=== PATIENT | female | born 1985 | race African-American/Black ===

== ENCOUNTER 2017-03-02 12:32 | Emergency (ER) | payer MEDICAID ==
[~2017-03-02] VITALS: Ht 175.3 cm; Wt 85.0 kg
[~2017-03-02 12:32] MED LIST: AUGM875T PO; EFFE75CA PO; HYDR10TA23 PO; SKIN CREAM
[2017-03-02 13:50] VITALS: BP 131/83; PULSE 67; RESP 19; TEMP 98.2; O2SAT 98
[2017-03-02] MEDS ORDERED: HYDR-755 PO (14:00)
--- NOTE | 2017-03-02 14:02 | PD ---
HPI Chief Complaint: Anxiety Time Seen by Provider: 14:00 Travel History International Travel<30 days: No Contact w/Intl Traveler<30days: No Traveled to known affect area: No History of Present Illness HPI Patient comes in complaining of chest pain that began while having an anxiety attack after [place] that began approximately 2 hours ago while she was on the phone with her sister. Patient states chest pain felt similar to previous panic attacks however was concerned when she was having difficulty getting her breathing under control patient reports associated headache and tingling in left arm. Patient reports her mother had a stent placed prior to the age of 40. Patient states chest pain has since resolved but still feels that she has a "bubble" in her back is worse with deep inspiration. PFSH Past Medical History Anxiety: Yes (PANIC ATTACKS) Diminished Hearing: No Gestational Age in Weeks: 16 Hypertension: Yes Integumentary: Yes (PSORIASIS) Immunizations Current: Yes Tetanus Vaccination: > 5 Years ?: Unknown LMP: 01/24/17 : 3 Para: 3 Miscarriage: 0 : 0 Past Surgical History Gynecologic Surgery: Yes (CYST) Social History Alcohol Use: Yes (OCC) Tobacco Use: Yes (1 ppd) Substance Use: Yes (MARIJUANA OCC) Allergies-Medications (Allergen,Severity, Reaction): Coded Allergies: Aspirin (Verified Allergy, Severe, DIZZY/VOMITING/STOMACH PAIN, 03/02/17) Ibuprofen (Verified Adverse Reaction, Intermediate, Rash, 03/02/17) PT HAS PSORIASIS AND GETS FLARE UPS WHEN SHE TAKE IBUPROFEN Reported Meds & Prescriptions Reported Meds & Active Scripts Active Reported Hydroxyzine HCl 10 Mg Tab 10 Mg PO TID Review of Systems Except as stated in HPI: all other systems reviewed are Neg Physical Exam Narrative GENERAL: Well-developed, overly nourished, in no acute distress, and non-ill appearing. SKIN: Focused skin assessment warm and dry. HEAD: Atraumatic. Normocephalic. EYES: Pupils equal and round. EOMI. No scleral icterus. No injection or drainage. ENT: No nasal bleeding or discharge. Mucous membranes pink and moist. NECK: Trachea midline. No JVD. Supple. No nuclear rigidity. CARDIOVASCULAR: Regular rate and rhythm. No murmur appreciated. RESPIRATORY: No accessory muscle use. No respiratory distress. Clear to auscultation. Breath sounds equal bilaterally. MUSCULOSKELETAL: No obvious deformities. No clubbing. No cyanosis. No edema. Full range of motion. NEUROLOGICAL: Awake and alert. No obvious cranial nerve deficits. Motor grossly within normal limits. Normal speech. PSYCHIATRIC: Appropriate mood and affect; insight and judgment normal. Data Data Last Documented VS Vital Signs Date Time Temp Pulse Resp B/P Pulse Ox O2 Delivery O2 Flow Rate FiO2 03/02/17 14:12 99 Room Air 03/02/17 13:50 98.2 67 19 131/83 Orders Electrocardiogram (03/02/17 14:02) Basic Metabolic Panel (Bmp) (03/02/17 14:02) Ckmb (Isoenzyme) Profile (03/02/17 14:02) Complete Blood Count With Diff (03/02/17 14:02) Magnesium (Mg) (03/02/17 14:02) Prothrombin Time / Inr (Pt) (03/02/17 14:02) Act Partial Throm Time (Ptt) (03/02/17 14:02) Troponin I (03/02/17 14:02) Chest, Single Ap (03/02/17 14:02) Ecg Monitoring (03/02/17 14:02) Bilateral Bp Monitoring (03/02/17 14:02) Iv Access Insert/Monitor (03/02/17 14:02) Oximetry (03/02/17 14:02) Oxygen Administration (03/02/17 14:02) Sodium Chloride 0.9% Flush (Ns Flush) (03/02/17 14:15) Labs Laboratory Tests Test 03/02/17 14:16 White Blood Count 6.0 TH/MM3 Red Blood Count 4.01 MIL/MM3 Hemoglobin 12.5 GM/DL Hematocrit 36.6 % Mean Corpuscular Volume 91.3 FL Mean Corpuscular Hemoglobin 31.2 PG Mean Corpuscular Hemoglobin 34.2 % Concent Red Cell Distribution Width 13.4 % Platelet Count 231 TH/MM3 Mean Platelet Volume 7.2 FL Neutrophils (%) (Auto) 45.6 % Lymphocytes (%) (Auto) 48.3 % Monocytes (%) (Auto) 4.0 % Eosinophils (%) (Auto) 0.9 % Basophils (%) (Auto) 1.2 % Neutrophils # (Auto) 2.7 TH/MM3 Lymphocytes # (Auto) 2.9 TH/MM3 Monocytes # (Auto) 0.2 TH/MM3 Eosinophils # (Auto) 0.1 TH/MM3 Basophils # (Auto) 0.1 TH/MM3 CBC Comment DIFF FINAL Differential Comment Prothrombin Time 11.4 SEC Prothromb Time International 1.0 RATIO Ratio Activated Partial 30.3 SEC Thromboplast Time Sodium Level 143 MEQ/L Potassium Level 3.3 MEQ/L Chloride Level 107 MEQ/L Carbon Dioxide Level 27.9 MEQ/L Anion Gap 8 MEQ/L Blood Urea Nitrogen 3 MG/DL Creatinine 1.51 MG/DL Estimat Glomerular Filtration 49 ML/MIN Rate Random Glucose 82 MG/DL Calcium Level 8.9 MG/DL Magnesium Level 1.9 MG/DL MDM Medical Decision Making Medical Screen Exam Complete: Yes Emergency Medical Condition: Yes Interpretation(s) EKG reviewed by Dr. [place] shows ventricular rate 60. No STEMI and no acute changes. Differential Diagnosis Atypical chest pain, panic attack, acute coronary syndrome, other Narrative Course AMA: The risks of leaving against medical advice without further evaluation treatment were discussed with the patient. These risks include cardiac dysfunction, cardiac dysrhythmia, possible heart attack, possible stroke or . The patient indicated understanding of these risks and appeared to have the capacity to make this decision. Pt ambulated without difficulty out of ED AMA. Diagnosis Primary Impression: Left against medical advice Disposition: 07 AGAINST MEDICAL ADVICE Condition: Stable Lee Glaser Mar 02, 2017 14:02
[2017-03-02 14:12] VITALS: O2SAT 99
[2017-03-02] MEDS ORDERED: SODIUM CHLORIDE 0.9% FLUSH 10 ML FLUSH IVF PRN (14:15)
[2017-03-02 14:32] LABS: AUTOMATED NEUTROPHIL # 2.7 TH/MM3 (1.8-7.7); BASOPHIL # 0.1 TH/MM3 (0-0.2); BASOPHIL % 1.2 % (0.0-2.0); EOSINOPHIL # 0.1 TH/MM3 (0-0.4); EOSINOPHIL % 0.9 % (0.0-4.0); HEMATOCRIT 36.6 % (35.0-46.0); HEMO FLAGS DIFF FINAL; LYMPH % 48.3 % (9.0-44.0); LYMPHOCYTE # 2.9 TH/MM3 (1.0-4.8); MEAN CELL VOLUME 91.3 FL (80.0-100.0); MEAN CORPUSCULAR HEMOGLOBIN 31.2 PG (27.0-34.0); MEAN CORPUSCULAR HGB CONC 34.2 % (32.0-36.0); NEUT % 45.6 % (16.0-70.0); PLATELET COUNT 231 TH/MM3 (150-450); RED BLOOD COUNT 4.01 MIL/MM3 (4.00-5.30); RED CELL DISTRIBUTION WIDTH 13.4 % (11.6-17.2)
[2017-03-02 14:44] LABS: APTT (PATIENT) 30.3 SEC (24.3-30.1); PROTHROMBIN TIME - PATIENT 11.4 SEC (9.8-11.6)
--- NOTE | 2017-03-02 14:45 | RADRPT ---
EXAM DATE/TIME: 03/02/2017 14:11 [facility] COMPARISON: CT ABDOMEN & PELVIS W/O CONTRAST, March 24, 2016, 11:24. CHEST SINGLE AP, October 17, 2014, 18:05. INDICATIONS : Patient states shortness of breath. MEDICAL HISTORY : Hypertension. SURGICAL HISTORY : None. ENCOUNTER: Initial ACUITY: 1 day PAIN SCORE: 4/10 LOCATION: Bilateral chest FINDINGS: The heart is normal in size. It does appear stable in size compared to previous date 10/17/14. The caron ngs are clear. The bony structures are intact. CONCLUSION: 1. Stable compared to previous exam. 2. The lungs are clear. Jim Kelley MD on March 02, 2017 at 14:42 Board Certified Radiologist. This report was verified electronically.
[2017-03-02 14:48] LABS: ANION GAP 8 MEQ/L (5-15); BICARBONATE 27.9 MEQ/L (21.0-32.0); BLOOD UREA NITROGEN 3 MG/DL (7-18); CHLORIDE 107 MEQ/L (98-107); GLOMERULAR FILTRATION RATE 49 ML/MIN (>89); MAGNESIUM 1.9 MG/DL (1.5-2.5); POTASSIUM 3.3 MEQ/L (3.5-5.1); SODIUM (NA) 143 MEQ/L (136-145)
[2017-03-02 14:51] LABS: CREATINE KINASE 254 U/L (26-192)
[2017-03-02 15:03] LABS: CKMB 0.9 NG/ML (0.5-3.6)
--- NOTE | 2017-03-03 10:47 | EKG ---
Date Performed: 03/02/2017 Time Performed: 14:03:32 PTAGE: 31 years EKG: Sinus rhythm NORMAL ECG Compared to prior tracing no significant change PREVIOUS TRACING : 12/25/2015 20.39 DOCTOR: Melody Valera Interpretating Date/Time 03/03/2017 10:40:42
== END 2017-03-02 15:26 | disposition left against medical advice (07) ==
LOC: NEPE 12:32
DX: Z53.21 Procedure and treatment not carried out due to patient leaving prior to being seen by health care provider (principal); F17.210 Nicotine dependence, cigarettes, uncomplicated; I10 Essential (primary) hypertension
CPT/HCPCS: 71010; 80048; 82550; 82552; 83735; 84484; 85025; 85610; 85730; 93005

== ENCOUNTER 2017-03-16 16:49 | Emergency (ER) | payer MEDICAID ==
[~2017-03-16] VITALS: Ht 170.2 cm; Wt 93.0 kg
[~2017-03-16 16:49] MED LIST changes: -AUGM875T PO; -EFFE75CA PO; +HYDR-755 PO; -HYDR10TA23 PO; -SKIN CREAM
[2017-03-16 16:51] VITALS: BP 165/83; PULSE 65; RESP 16; TEMP 97.7; O2SAT 100
--- NOTE | 2017-03-16 17:20 | PD ---
Physical Exam Time Seen by Provider: 17:18 Narrative Pt presents to ED for evaluation of L foot pain after kicking a fan yesterday at [employer]. Pain is 6/10; exacerbated by walking. Has been taking tylenol. Pt is concerned because it is swollen and is having sharp stinging pains. Pt has medical history of psoriasis. Data Data Last Documented VS Vital Signs Date Time Temp Pulse Resp B/P Pulse Ox O2 Delivery O2 Flow Rate FiO2 03/16/17 16:51 97.7 65 16 165/83 100 Room Air [facility] Medical Record Reviewed: Yes Supervised Visit with [facility]: No Narrative Course Pt presents to ED for evaluation of L foot pain. Appears well. VSS. Xray ordered. Condition: Stable Sari Zamorano Mar 16, 2017 17:20
--- NOTE | 2017-03-16 17:58 | RADRPT ---
EXAM DATE/TIME: 03/16/2017 17:44 [facility] COMPARISON: No previous studies available for comparison. INDICATIONS : Left foot pain after hitting AC fan. MEDICAL HISTORY : None. SURGICAL HISTORY : None. ENCOUNTER: Initial ACUITY: 1 day PAIN SCORE: 6/10 LOCATION: Left lateral foot. FINDINGS: There is a nondisplaced fracture of the fifth middle phalanx there. IMPRESSION: Fifth middle phalangeal fracture.. Krishna Edward MD on March 16, 2017 at 17:55 Board Certified Radiologist. This report was verified electronically.
[2017-03-16] MEDS ORDERED: ACET500T3 PO (18:10)
--- NOTE | 2017-03-16 18:11 | PD ---
HPI Chief Complaint: Injury Time Seen by Provider: 18:08 Travel History International Travel<30 days: No Contact w/Intl Traveler<30days: No Traveled to known affect area: No History of Present Illness HPI 31-year-old male presents emergency Department with complaint of left fifth toe pain since Thursday after kicking a fan while at [employer]. Denies paresthesias, loss of sensation to the affected toe. Denies fever, chills, nausea, vomiting. Has taken Tylenol with little relief of pain. Allergies to aspirin and ibuprofen. Pain is aggravated with palpation, walking. No other modifying factors or associated signs and symptoms. PFSH Past Medical History Anxiety: Yes (PANIC ATTACKS) Diminished Hearing: No Gestational Age in Weeks: 16 Hypertension: Yes Integumentary: Yes (PSORIASIS) Immunizations Current: Yes : 3 Para: 3 Miscarriage: 0 : 0 Past Surgical History Gynecologic Surgery: Yes (CYST) Social History Alcohol Use: Yes (OCC) Tobacco Use: Yes (1 ppd) Substance Use: Yes (MARIJUANA OCC) Allergies-Medications (Allergen,Severity, Reaction): Coded Allergies: Aspirin (Verified Allergy, Severe, DIZZY/VOMITING/STOMACH PAIN, 03/16/17) Ibuprofen (Verified Adverse Reaction, Intermediate, Rash, 03/16/17) PT HAS PSORIASIS AND GETS FLARE UPS WHEN SHE TAKE IBUPROFEN Reported Meds & Prescriptions Reported Meds & Active Scripts Active Acetaminophen 500 Mg Tab 500 Mg PO Q6H PRN Reported Hydroxyzine HCl 10 Mg Tab 10 Mg PO TID Review of Systems Except as stated in HPI: all other systems reviewed are Neg Physical Exam Narrative GENERAL: Well-nourished, well-developed -Malaysian female patient, in no acute distress SKIN: Warm and dry. HEAD: Atraumatic. Normocephalic. EYES: Pupils equal and round. No scleral icterus. No injection or drainage. ENT: Mucosa pink and moist. Airway patent. NECK: Trachea midline. CARDIOVASCULAR: Regular rate. 3+ radial pulses. RESPIRATORY: No accessory muscle use. GASTROINTESTINAL: Rounded. MUSCULOSKELETAL: Left fifth toe is mildly edematous without erythema or ecchymosis; no obvious deformity; sensory intact. Left lower x-ray supplemented with 2+ pedal pulses and sensory intact without erythema or edema. No obvious deformities. No clubbing. No cyanosis. No edema. NEUROLOGICAL: Awake and alert. Oriented 3. No obvious cranial nerve deficits. Motor grossly within normal limits. Normal speech. PSYCHIATRIC: Appropriate mood and affect; insight and judgment normal. Data Data Last Documented VS Vital Signs Date Time Temp Pulse Resp B/P Pulse Ox O2 Delivery O2 Flow Rate FiO2 03/16/17 16:51 97.7 65 16 165/83 100 Room Air Orders Foot, Complete ([id number]) (03/16/17 ) Splint Or Brace Apply/Monitor (03/16/17 18:11) Crutches (03/16/17 18:11) MDM Medical Decision Making Medical Screen Exam Complete: Yes Emergency Medical Condition: Yes Medical Record Reviewed: Yes Differential Diagnosis Toe fracture, toe dislocation, toe contusion Narrative Course 31-year-old female with left fifth toe injury. Left fifth toe x-ray ordered. 1808: Left fifth toe x-ray concludes a nondisplaced fracture of the fifth middle phalanx. Postop shoe and crutches provided for support. Acetaminophen prescribed for home. Patient verbalizes understanding and agreement with treatment plan. Patient is medically cleared and stable for discharge. Discussed reasons to return to the emergency department. Instructed patient to follow up with primary care provider. Patient agrees with treatment plan. The patients vital signs are stable and the patient is stable for outpatient follow- up and treatment. Patient discharged home, stable and in no acute distress. Diagnosis Primary Impression: Toe fracture, left Qualified Code: S92.525A - Closed nondisplaced fracture of middle phalanx of lesser toe of left foot, initial encounter Referrals: Primary Care Physician Patient Instructions: Crutch Instructions (ED), General Instructions, Toe Fracture (ED) Departure Forms: Tests/Procedures, Work Release Enter return to work date: Mar 20, 2017 Additional Instructions: Tylenol as directed and as needed for pain and inflammation Rest, ice, compress, and elevate extremity to decrease pain and inflammation Shoe for support Avoid aggravating activity; increase activity as tolerated Follow-up with primary care provider Return to the emergency department immediately with worsening symptoms Med/Other Pt SpecificInfo: Prescription(s) given Scripts Acetaminophen 500 Mg [id number] Mg PO Q6H PRN (PAIN SCALE 1 TO 10) #30 TAB Ref 0 Prov:Abril Alfred 03/16/17 Disposition: 01 DISCHARGE HOME Condition: Stable Abril Alfred Mar 16, 2017 18:11
== END 2017-03-16 18:30 | disposition home or self-care (01) ==
LOC: NEPK 16:49
DX: S92.912A Unspecified fracture of left toe(s), initial encounter for closed fracture (principal); I10 Essential (primary) hypertension; F12.90 Cannabis use, unspecified, uncomplicated; W22.09XA Striking against other stationary object, initial encounter; Y92.22 Religious institution as the place of occurrence of the external cause; Z72.0 Tobacco use
CPT/HCPCS: 73630; 99283; E0113; L3260

== ENCOUNTER 2017-05-18 16:42 | Emergency (ER) | payer MEDICAID ==
[~2017-05-18] VITALS: Ht 170.2 cm; Wt 92.0 kg
[~2017-05-18 16:42] MED LIST changes: +ACET500T3 PO
[2017-05-18 16:46] VITALS: BP 120/61; PULSE 76; RESP 22; TEMP 98.3; O2SAT 99
--- NOTE | 2017-05-18 17:53 | PD ---
HPI Chief Complaint: Abdominal Pain Time Seen by Provider: 17:53 Travel History International Travel<30 days: No Contact w/Intl Traveler<30days: No Traveled to known affect area: No History of Present Illness HPI 31 YO F presents to the ED for evaluation of 1 hour history of sudden onset cramping LLQ abdominal pain. Radiates to the pelvis and back. Patient denies known trauma, F/C, N/V, dysuria, vaginal discharge. States LMP was "earlier this month." PFSH Past Medical History Anxiety: Yes (PANIC ATTACKS) Diminished Hearing: No Gestational Age in Weeks: 16 Hypertension: Yes Integumentary: Yes (PSORIASIS) Immunizations Current: Yes ?: Unknown : 3 Para: 3 Miscarriage: 0 : 0 Past Surgical History Gynecologic Surgery: Yes (CYST) Social History Alcohol Use: Yes (OCC) Tobacco Use: Yes (1 ppd) Substance Use: Yes (MARIJUANA OCC) Allergies-Medications (Allergen,Severity, Reaction): Coded Allergies: Aspirin (Verified Allergy, Severe, DIZZY/VOMITING/STOMACH PAIN, 05/18/17) Ibuprofen (Verified Adverse Reaction, Intermediate, Rash, 05/18/17) PT HAS PSORIASIS AND GETS FLARE UPS WHEN SHE TAKE IBUPROFEN Reported Meds & Prescriptions Reported Meds & Active Scripts Active Reported Effexor (Venlafaxine HCl) 50 Mg Tab 50 Mg PO Q8H PRN Effexor (Venlafaxine HCl) 50 Mg Tab 50 Mg PO Q8H Hydroxyzine HCl 10 Mg Tab 25 Mg PO TID Review of Systems Except as stated in HPI: all other systems reviewed are Neg Physical Exam Narrative GENERAL: Well-nourished, well-developed obese black female lying on her side on the stretcher in [facility]. SKIN: Focused skin assessment warm/dry. Multiple tattoos noted HEAD: Normocephalic. EYES: No scleral icterus. No injection or drainage. NECK: Supple, trachea midline. No JVD or lymphadenopathy. CARDIOVASCULAR: Regular rate and rhythm without murmurs, gallops, or rubs. RESPIRATORY: Breath sounds equal bilaterally. No accessory muscle use. GASTROINTESTINAL: Abdomen soft, nondistended. Mildly tender to palpation in the left lower quadrant. No flank tenderness. No suprapubic tenderness. No palpable masses. MUSCULOSKELETAL: No cyanosis, or edema. BACK: Nontender without obvious deformity. No CVA tenderness. Data Data Last Documented VS Vital Signs Date Time Temp Pulse Resp B/P Pulse Ox O2 Delivery O2 Flow Rate FiO2 05/18/17 17:56 62 16 159/77 100 Room Air 05/18/17 16:46 98.3 Orders Complete Blood Count With Diff (05/18/17 17:57) Comprehensive Metabolic Panel (05/18/17 17:57) Lipase (05/18/17 17:57) Lactic Acid (05/18/17 17:57) Urinalysis - C+S If Indicated (05/18/17 17:57) Iv Access Insert/Monitor (05/18/17 17:57) Ecg Monitoring (05/18/17 17:57) Oximetry (05/18/17 17:57) NPO (05/18/17 17:57) Ondansetron Inj (Zofran Inj) (05/18/17 18:00) Sodium Chlor 0.9% 1000 Ml Inj (Ns 1000 M (05/18/17 17:57) Sodium Chloride 0.9% Flush (Ns Flush) (05/18/17 18:00) Ed Urine Pregnancytest Poc (05/18/17 17:57) Morphine Inj (Morphine Inj) (05/18/17 18:00) Ct Abd/Pel W Iv Contrast(Rout) (05/18/17 18:01) Iohexol 350 Inj (Omnipaque 350 Inj) (05/18/17 19:38) Labs Laboratory Tests Test 05/18/17 05/18/17 05/18/17 18:07 18:35 20:12 Lactic Acid Level 1.6 mmol/L White Blood Count 6.5 TH/MM3 Red Blood Count 4.32 MIL/MM3 Hemoglobin 13.4 GM/DL Hematocrit 40.2 % Mean Corpuscular Volume 93.0 FL Mean Corpuscular Hemoglobin 31.1 PG Mean Corpuscular Hemoglobin 33.4 % Concent Red Cell Distribution Width 12.9 % Platelet Count 235 TH/MM3 Mean Platelet Volume 7.4 FL Neutrophils (%) (Auto) 55.6 % Lymphocytes (%) (Auto) 36.5 % Monocytes (%) (Auto) 4.5 % Eosinophils (%) (Auto) 2.0 % Basophils (%) (Auto) 1.4 % Neutrophils # (Auto) 3.6 TH/MM3 Lymphocytes # (Auto) 2.4 TH/MM3 Monocytes # (Auto) 0.3 TH/MM3 Eosinophils # (Auto) 0.1 TH/MM3 Basophils # (Auto) 0.1 TH/MM3 CBC Comment DIFF FINAL Differential Comment Sodium Level 139 MEQ/L Potassium Level 3.5 MEQ/L Chloride Level 108 MEQ/L Carbon Dioxide Level 20.3 MEQ/L Anion Gap 11 MEQ/L Blood Urea Nitrogen 6 MG/DL Creatinine 0.82 MG/DL Estimat Glomerular Filtration 98 ML/MIN Rate Random Glucose 81 MG/DL Calcium Level 8.7 MG/DL Total Bilirubin 0.6 MG/DL Aspartate Amino Transf 11 U/L (AST/SGOT) Alanine Aminotransferase 14 U/L (ALT/SGPT) Alkaline Phosphatase 45 U/L Total Protein 7.1 GM/DL Albumin 3.5 GM/DL Lipase 105 U/L Urine Color YELLOW Urine Turbidity CLEAR Urine pH 8.0 Urine Specific [place] 1.046 Urine Protein TRACE mg/dL Urine Glucose (UA) NEG mg/dL Urine Ketones 10 mg/dL Urine Occult Blood TRACE Urine Nitrite NEG Urine Bilirubin NEG Urine Urobilinogen LESS THAN 2.0 MG/DL Urine Leukocyte Esterase TRACE Urine RBC 8 /hpf Urine WBC 3 /hpf Urine Squamous Epithelial 5 /hpf Cells Urine Mucus FEW /lpf Microscopic Urinalysis Comment CULT NOT INDICATED MDM Medical Decision Making Medical Screen Exam Complete: Yes Emergency Medical Condition: Yes Differential Diagnosis nephroureterolithiasis versus ovarian torsion versus ovarian cyst versus diverticulitis versus other Narrative Course 31 YO F presents to the ED for evaluation of 1 hour history of sudden onset cramping LLQ abdominal pain. Radiates to the pelvis and back. Patient denies known trauma, F/C, N/V, dysuria, vaginal discharge. States LMP was "earlier this month." Vitals reviewed. Physical exam reveals mild tenderness to palpation of the left lower quadrant. No suprapubic tenderness. No flank tenderness. No CVA tenderness. IV was established. Patient was administered 4 mg morphine and 4 mg Zofran IV. CBC, CMP, lipase, lactate all unremarkable. Urine test negative. CT of the abdomen reveals no acute pathology in the left lower quadrant to explain this patient's pain. Review of the patient' s record reveals that she had a visit in March 2016 with a very similar presentation and complaint, diagnosed with UTI at that time. During the course of evaluation the patient became very agitated, demanding additional pain medications. I entered the room to discuss the findings and the patient was removing her IV. I informed her of the findings and the pending UA. The patient opted to leave AGAINST MEDICAL ADVICE. Subsequent UA results negative for culture. Diagnosis Primary Impression: Left lower quadrant abdominal pain of unknown etiology Referrals: Residential Treatment Counselor Primary Care Physician Patient Instructions: Abdominal Pain (ED), General Instructions Additional Instructions: Rest, hydrate. Follow-up with the primary care provider or food counselor for further evaluation of your intermittent abdominal pain. Return to the ED for any urgent or emergent medical condition. Disposition: 07 AGAINST MEDICAL ADVICE Condition: Stable Anneliese España May 18, 2017 17:53
[2017-05-18 17:56] VITALS: BP 159/77; PULSE 62; RESP 16; O2SAT 100
[2017-05-18] MEDS ORDERED: SODIUM CHLOR 0.9% 1000 ML INJ 1,000 ML IV SCH (17:57)
[2017-05-18] MEDS ORDERED: ONDANSETRON HCL 4 MG/2 ML VIAL IVP ONE (18:00)
[2017-05-18] MEDS ORDERED: SODIUM CHLORIDE 0.9% FLUSH 10 ML FLUSH IV FLUSH PRN (18:00)
[2017-05-18] MEDS ORDERED: MORPHINE SULFATE 4 MG/ML INJ IV PUSH ONE (18:00)
[2017-05-18] MEDS ORDERED: VENL50TA PO (18:02)
[2017-05-18 19:03] LABS: AUTOMATED NEUTROPHIL # 3.6 TH/MM3 (1.8-7.7); BASOPHIL # 0.1 TH/MM3 (0-0.2); BASOPHIL % 1.4 % (0.0-2.0); EOSINOPHIL # 0.1 TH/MM3 (0-0.4); HEMATOCRIT 40.2 % (35.0-46.0); HEMO FLAGS DIFF FINAL; LYMPH % 36.5 % (9.0-44.0); LYMPHOCYTE # 2.4 TH/MM3 (1.0-4.8); MEAN CORPUSCULAR HEMOGLOBIN 31.1 PG (27.0-34.0); MEAN CORPUSCULAR HGB CONC 33.4 % (32.0-36.0); MONO % 4.5 % (0.0-8.0); NEUT % 55.6 % (16.0-70.0); PLATELET COUNT 235 TH/MM3 (150-450); RED BLOOD COUNT 4.32 MIL/MM3 (4.00-5.30); RED CELL DISTRIBUTION WIDTH 12.9 % (11.6-17.2); WHITE BLOOD COUNT 6.5 TH/MM3 (4.0-11.0)
[2017-05-18 19:13] LABS: ALT (GPT) 14 U/L (10-53); ANION GAP 11 MEQ/L (5-15); AST (GOT) 11 U/L (15-37); BICARBONATE 20.3 MEQ/L (21.0-32.0); BLOOD UREA NITROGEN 6 MG/DL (7-18); CHLORIDE 108 MEQ/L (98-107); GLOMERULAR FILTRATION RATE 98 ML/MIN (>89); POTASSIUM 3.5 MEQ/L (3.5-5.1); SODIUM (NA) 139 MEQ/L (136-145)
[2017-05-18 19:15] LABS: ALKALINE PHOSPHATASE 45 U/L (45-117); TOTAL BILIRUBIN ADULT 0.6 MG/DL (0.2-1.0)
[2017-05-18] MEDS ORDERED: IOHEXOL 350 MG/ML 10 ML VIAL (for RAD DIAG) IV ONE (19:38)
--- NOTE | 2017-05-18 19:58 | RADRPT ---
EXAM DATE/TIME: 05/18/2017 19:32 [facility] COMPARISON: CT ABDOMEN & PELVIS W CONTRAST, May 03, 2007, 1:38. INDICATIONS : Left lower quadrant pain radiating. IV CONTRAST: 77 cc Omnipaque 350 (iohexol) IV ORAL CONTRAST: No oral contrast ingested. RADIATION DOSE: 10.09 CTDIvol (mGy) MEDICAL HISTORY : Hypertension. Psoriasis. SURGICAL HISTORY : None. ENCOUNTER: Initial ACUITY: 1 day PAIN SCALE: 8/10 LOCATION: Left lower quadrant TECHNIQUE: Volumetric scanning of the abdomen and pelvis was performed. Using automated exposure control and ad justment of the mA and/or kV according to patient size, radiation dose was kept as low as reasonably achievable to obtain optimal diagnostic quality images. FINDINGS: LOWER LUNGS: The visualized lower lungs are clear. LIVER: Homogeneous density without lesion. There is no dilation of the biliary tree. No calcified gallston es. SPLEEN: Normal size without lesion. PANCREAS: Within normal limits. KIDNEYS: Normal in size and shape. There is no mass, stone or hydronephrosis. ADRENAL GLANDS: Within normal limits. VASCULAR: There is no aortic aneurysm. BOWEL/MESENTERY: The stomach, small bowel, and colon demonstrate no acute abnormality. There is fluid throughout the colon and rectum. Appendix is not visualized. There is no free intraperitoneal air or fluid. ABDOMINAL WALL: Within normal limits. RETROPERITONEUM: There is no lymphadenopathy. BLADDER: No wall thickening or mass. REPRODUCTIVE: The uterus and left ovary have a normal appearance. There is a 2.8 cm cystic structure in the right a dnexa. It is not clear if this is associated with the right ovary or represents a segment of fluid-fi lled bowel. INGUINAL: There is no lymphadenopathy or hernia. MUSCULOSKELETAL: No acute finding. CONCLUSION: 1. No acute finding is identified the abdomen or pelvis to explain the clinical symptoms. 2. There is a right ovarian cystic lesion measuring 2.8 cm versus a segment of fluid-filled bowel. Ambrosio Zamora MD on May 18, 2017 at 19:53 Board Certified Radiologist. This report was verified electronically.
[2017-05-18 20:55] LABS: BLOOD, URINE TRACE (NEG); COMMENT (UR) CULT NOT INDICATED; CULTURE IF INDICATED CULT NOT INDICATED; GLUCOSE,URINE NEG (NEG); KETONE, URINE 10 mg/dL (NEG); MUCUS URINE FEW /lpf (OCC); NITRITE,URINE NEG (NEG); SQUAMOUS EPITHELIAL CELL URINE 5 /hpf (0-5); URINE COLOR YELLOW (YELLW/STRAW)
== END 2017-05-18 21:02 | disposition left against medical advice (07) ==
LOC: NEPD 16:42
DX: R10.32 Left lower quadrant pain (principal); I10 Essential (primary) hypertension; F17.210 Nicotine dependence, cigarettes, uncomplicated
CPT/HCPCS: 74177; 80053; 81001; 83605; 83690; 84703; 85025; 96361; 96374; 96375; 99285; J2270; J2405; J7030; Q9967

== ENCOUNTER 2018-03-05 19:13 | Emergency (ER) | payer MEDICAID ==
[~2018-03-05] VITALS: Ht 167.6 cm; Wt 98.0 kg
[~2018-03-05 19:13] MED LIST changes: -ACET500T3 PO; +VENL50TA PO
[2018-03-05 19:23] VITALS: BP 156/89; PULSE 87; RESP 16; TEMP 98.2; O2SAT 100
== END 2018-03-05 20:10 | disposition left against medical advice (07) ==
LOC: NED 19:13
DX: R10.9 Unspecified abdominal pain (principal); Z53.21 Procedure and treatment not carried out due to patient leaving prior to being seen by health care provider
CPT/HCPCS: 99281

== ENCOUNTER 2018-03-08 11:29 | Emergency (ER) | payer MEDICAID ==
[~2018-03-08] VITALS: Ht 167.6 cm; Wt 95.5 kg
[2018-03-08 12:14] VITALS: BP 164/89; PULSE 93; RESP 20; TEMP 102.9; O2SAT 99
[2018-03-08] MEDS ORDERED: ACETAMINOPHEN 325 MG TAB PO ONE (12:30)
[2018-03-08 14:10] VITALS: TEMP 100.5
--- NOTE | 2018-03-08 15:01 | PD ---
HPI Chief Complaint: Cold / Flu Symptoms Time Seen by Provider: 15:00 Travel History International Travel<30 days: No Contact w/Intl Traveler<30days: No Traveled to known affect area: No History of Present Illness HPI 32-year-old female came to the emergency room with history of fever, cough and sneezing along with body aches for past 2 days. Her son is sick and is being seen in the pediatric part of the emergency room. Vital signs shows a temperature 102.5 in triage. Patient was given Tylenol in the emergency room triage. Patient also says that she was tested positive for couple days ago. She has been nauseous but not vomiting. No diarrhea. She is otherwise a relatively healthy person. [facility] Past Medical History Narrative Medical List of her past medical, surgical, social and family history is reviewed from the nursing note. Anxiety: Yes (PANIC ATTACKS) Diminished Hearing: No Gestational Age in Weeks: 16 Hypertension: Yes Integumentary: Yes (PSORIASIS) Immunizations Current: Yes ?: : 3 Para: 3 Miscarriage: 0 : 0 Past Surgical History Gynecologic Surgery: Yes (CYST) Social History Alcohol Use: Yes (OCC) Tobacco Use: Yes (1 ppd) Substance Use: Yes (MARIJUANA OCC) Allergies-Medications (Allergen,Severity, Reaction): Coded Allergies: aspirin (Unverified Allergy, Severe, DIZZY/VOMITING/STOMACH PAIN, 03/11/18) ibuprofen (Unverified Adverse Reaction, Intermediate, Rash, 03/11/18) PT HAS PSORIASIS AND GETS FLARE UPS WHEN SHE TAKE IBUPROFEN Comments List of her allergies reviewed from the nursing note. Reported Meds & Prescriptions Reported Meds & Active Scripts Active Vitamins Tablet (Pnv No.95/Ferrous Fum/Folic AC) 28 Mg Iron-800 Mcg Tablet 1 Tab PO ONCE Tamiflu (Oseltamivir Phosphate) 75 Mg Cap 75 Mg PO BID 5 Days Narrative Medication List of her home medications reviewed from the nursing note. Review of Systems Except as stated in HPI: all other systems reviewed are Neg General / Constitutional: Positive: Fever Respiratory: Positive: Cough, Sneezing Musculoskeletal: Positive: Myalgias Physical Exam Narrative GENERAL: Awake, alert, moderate distress, obese SKIN: Focused skin assessment warm/dry. HEAD: Atraumatic. Normocephalic. EYES: Pupils equal and round. No scleral icterus. No injection or drainage. ENT: No nasal bleeding or discharge. Mucous membranes pink and moist. NECK: Trachea midline. No JVD. CARDIOVASCULAR: Regular rate and rhythm. No murmur appreciated. RESPIRATORY: No accessory muscle use. Clear to auscultation. Breath sounds equal bilaterally. GASTROINTESTINAL: Abdomen soft, non-tender, nondistended. Hepatic and splenic margins not palpable. MUSCULOSKELETAL: No obvious deformities. No clubbing. No cyanosis. No edema. NEUROLOGICAL: Awake and alert. No obvious cranial nerve deficits. Motor grossly within normal limits. Normal speech. PSYCHIATRIC: Appropriate mood and affect; insight and judgment normal. Data Data Last Documented VS Orders Orders Complete Blood Count With Diff (03/08/18 12:16) Comprehensive Metabolic Panel (03/08/18 12:16) Urinalysis - C+S If Indicated (03/08/18 12:16) Lipase (03/08/18 12:16) Ed Urine Pregnancytest Poc (03/08/18 12:16) Beta Hcg (Quant/Titer) (03/08/18 12:16) Influenzae A/B Antigen (03/08/18 12:16) Acetaminophen (Tylenol) (03/08/18 12:30) Blood Culture (03/08/18 15:01) Sodium Chlor 0.9% 1000 Ml Inj (Ns 1000 M (03/08/18 15:15) Oseltamivir (Tamiflu) (03/08/18 16:30) Ed Discharge Order (03/08/18 16:19) Labs Laboratory Tests Test 03/08/18 14:14 03/08/18 14:45 Urine Color YELLOW Urine Turbidity HAZY Urine pH 7.0 Urine Specific [place] 1.027 Urine Protein 30 mg/dL Urine Glucose (UA) NEG mg/dL Urine Ketones 10 mg/dL Urine Occult Blood SMALL Urine Nitrite NEG Urine Bilirubin NEG Urine Urobilinogen 4.0 MG/DL Urine Leukocyte Esterase NEG Urine RBC 23 /hpf Urine WBC 2 /hpf Urine Squamous Epithelial Cells 5 /hpf Urine Bacteria RARE /hpf Urine Mucus MOD /lpf Microscopic Urinalysis Comment CULT NOT INDICATED White Blood Count 4.5 TH/MM3 Red Blood Count 4.45 MIL/MM3 Hemoglobin 14.4 GM/DL Hematocrit 41.1 % Mean Corpuscular Volume 92.3 FL Mean Corpuscular Hemoglobin 32.3 PG Mean Corpuscular Hemoglobin Concent 35.0 % Red Cell Distribution Width 13.2 % Platelet Count 205 TH/MM3 Mean Platelet Volume 7.1 FL Neutrophils (%) (Auto) 71.8 % Lymphocytes (%) (Auto) 16.8 % Monocytes (%) (Auto) 10.4 % Eosinophils (%) (Auto) 0.1 % Basophils (%) (Auto) 0.9 % Neutrophils # (Auto) 3.2 TH/MM3 Lymphocytes # (Auto) 0.8 TH/MM3 Monocytes # (Auto) 0.5 TH/MM3 Eosinophils # (Auto) 0.0 TH/MM3 Basophils # (Auto) 0.0 TH/MM3 CBC Comment DIFF FINAL Differential Comment Blood Urea Nitrogen 5 MG/DL Creatinine 0.95 MG/DL Random Glucose 82 MG/DL Total Protein 8.0 GM/DL Albumin 3.8 GM/DL Calcium Level 8.5 MG/DL Alkaline Phosphatase 52 U/L Aspartate Amino Transf (AST/SGOT) 26 U/L Alanine Aminotransferase (ALT/SGPT) 24 U/L Total Bilirubin 0.3 MG/DL Sodium Level 136 MEQ/L Potassium Level 3.2 MEQ/L Chloride Level 101 MEQ/L Carbon Dioxide Level 24.7 MEQ/L Anion Gap 10 MEQ/L Estimat Glomerular Filtration Rate 82 ML/MIN Lipase 152 U/L Human Chorionic Gonadotropin, Quant 147 MIU/ML MDM Medical Decision Making Medical Screen Exam Complete: Yes Emergency Medical Condition: Yes Medical Record Reviewed: Yes Differential Diagnosis Influenza, viral illness, UTI, Narrative Course Urine is positive. Awaiting for the chemistry and influenza test. Patient is getting 1 L of IV fluid bolus. 4:20 PM influenza A is positive. Have ordered Tamiflu. Patient will be discharged home. Procedures EKG Prior to Arrival: No Diagnosis Primary Impression: Influenza A Additional Impression: Early stage of Additional Instructions: Return to the emergency room if the condition worsens or any other new concerns. Drink lots of fluid to stay hydrated. Take the medication as per the prescription direction. Try to find an OB for this . Med/Other Pt SpecificInfo: Prescription(s) given Scripts Pnv No.95/Ferrous Fum/Folic AC ( Vitamins Tablet) 28 Mg Iron-800 Mcg Tablet 1 TAB PO ONCE, #30 Prov: Leia Riojas MD 03/08/18 Oseltamivir (Tamiflu) 75 Mg Cap 75 MG PO BID for Mgmt Viral Infection for 5 Days, #10 CAP 0 Refills Prov: Leia Riojas MD 03/08/18 Disposition: 01 DISCHARGE HOME Condition: Stable Leia Riojas MD Mar 08, 2018 15:01
[2018-03-08] MEDS ORDERED: SODIUM CHLOR 0.9% 1000 ML INJ 1,000 ML IV ONE (15:15)
[2018-03-08 15:37] LABS: AUTOMATED NEUTROPHIL # 3.2 TH/MM3 (1.8-7.7); BASOPHIL % 0.9 % (0.0-2.0); EOSINOPHIL % 0.1 % (0.0-4.0); HEMATOCRIT 41.1 % (35.0-46.0); HEMOGLOBIN 14.4 GM/DL (11.6-15.3); LYMPH % 16.8 % (9.0-44.0); LYMPHOCYTE # 0.8 TH/MM3 (1.0-4.8); MEAN CELL VOLUME 92.3 FL (80.0-100.0); MEAN CORPUSCULAR HEMOGLOBIN 32.3 PG (27.0-34.0); MEAN PLATELET VOLUME 7.1 FL (7.0-11.0); MONO % 10.4 % (0.0-8.0); MONOCYTE # 0.5 TH/MM3 (0-0.9); NEUT % 71.8 % (16.0-70.0); PLATELET COUNT 205 TH/MM3 (150-450); RED BLOOD COUNT 4.45 MIL/MM3 (4.00-5.30); RED CELL DISTRIBUTION WIDTH 13.2 % (11.6-17.2); WHITE BLOOD COUNT 4.5 TH/MM3 (4.0-11.0)
[2018-03-08 15:43] LABS: BACTERIA, URINE RARE /hpf; BILIRUBIN, URINE NEG (NEG); BLOOD, URINE SMALL (NEG); GLUCOSE,URINE NEG (NEG); KETONE, URINE 10 mg/dL (NEG); MUCUS URINE MOD /lpf (OCC); NITRITE,URINE NEG (NEG); SQUAMOUS EPITHELIAL CELL URINE 5 /hpf (0-5); URINE COLOR YELLOW (YELLW/STRAW); URINE LEUKOCYTE ESTERASE NEG (NEG)
[2018-03-08 16:04] LABS: ALBUMIN 3.8 GM/DL (3.4-5.0); AST (GOT) 26 U/L (15-37); BICARBONATE 24.7 MEQ/L (21.0-32.0); BLOOD UREA NITROGEN 5 MG/DL (7-18); CALCIUM 8.5 MG/DL (8.5-10.1); CHLORIDE 101 MEQ/L (98-107); CREATININE 0.95 MG/DL (0.50-1.00); GLOMERULAR FILTRATION RATE 82 ML/MIN (>89); GLUCOSE,RANDOM 82 MG/DL (74-106); SODIUM (NA) 136 MEQ/L (136-145)
[2018-03-08 16:14] LABS: ALKALINE PHOSPHATASE 52 U/L (45-117); ALT (GPT) 24 U/L (10-53); TOTAL BILIRUBIN ADULT 0.3 MG/DL (0.2-1.0)
[2018-03-08] MEDS ORDERED: OSEL75 PO (16:22)
[2018-03-08] MEDS ORDERED: PRENTAB7 PO (16:22)
[2018-03-08] MEDS ORDERED: OSELTAMIVIR PHOSPHATE 75 MG CAP PO ONE (16:30)
[2018-03-08 16:56] VITALS: BP 146/83
== END 2018-03-08 16:59 | disposition home or self-care (01) ==
LOC: NEPD 11:29
DX: O99.512 Diseases of the respiratory system complicating pregnancy, second trimester (principal); J10.1 Influenza due to other identified influenza virus with other respiratory manifestations; O99.332 Smoking (tobacco) complicating pregnancy, second trimester; F17.200 Nicotine dependence, unspecified, uncomplicated; Z3A.16 16 weeks gestation of pregnancy
CPT/HCPCS: 80053; 81001; 83690; 84702; 84703; 85025; 87040; 87804; 96360; 99284; J7030

== ENCOUNTER 2018-03-11 02:18 | Emergency (ER) | payer MEDICAID ==
[~2018-03-11 02:18] MED LIST changes: -HYDR-755 PO; +OSEL75 PO; +PRENTAB7 PO; -VENL50TA PO
[2018-03-11 02:22] VITALS: BP 129/87; PULSE 100; RESP 16; TEMP 98.7; O2SAT 10; O2SAT 100
--- NOTE | 2018-03-11 02:38 | PD ---
HPI Chief Complaint: Related Problem Time Seen by Provider: 02:33 Travel History International Travel<30 days: No Contact w/Intl Traveler<30days: No Traveled to known affect area: No History of Present Illness HPI 32-year-old female G for P3, LMP in December of this year, seen in the emergency department 3 days ago with a beta-hCG of 147, diagnosed with influenza B at that time, discharged home with a prescription for Tamiflu, here for evaluation of lower abdominal pain/cramping and vaginal bleeding. Symptoms started this evening. She reports brown/bloody discharge. Lower abdominal cramping is constant, moderate, worse with movements. She denies history of abdominal surgeries. She is sexually active with one partner and believe she is in a monogamous relationship. PFSH Past Medical History Anxiety: Yes (PANIC ATTACKS) Diminished Hearing: No Gestational Age in Weeks: 16 Hypertension: Yes Integumentary: Yes (PSORIASIS) Immunizations Current: Yes ?: LMP: 01/24/2018 : 3 Para: 3 Miscarriage: 0 : 0 Past Surgical History Gynecologic Surgery: Yes (CYST) Social History Alcohol Use: Yes (OCC) Tobacco Use: No (QUIT 1 MONTH ) Substance Use: Yes (MARIJUANA OCC) Allergies-Medications (Allergen,Severity, Reaction): Coded Allergies: aspirin (Unverified Allergy, Severe, DIZZY/VOMITING/STOMACH PAIN, 03/11/18) ibuprofen (Unverified Adverse Reaction, Intermediate, Rash, 03/11/18) PT HAS PSORIASIS AND GETS FLARE UPS WHEN SHE TAKE IBUPROFEN Reported Meds & Prescriptions Reported Meds & Active Scripts Active Vitamins Tablet (Pnv No.95/Ferrous Fum/Folic AC) 28 Mg Iron-800 Mcg Tablet 1 Tab PO ONCE Tamiflu (Oseltamivir Phosphate) 75 Mg Cap 75 Mg PO BID 5 Days Review of Systems Except as stated in HPI: all other systems reviewed are Neg Physical Exam Narrative GENERAL: Well-developed, well-nourished, no apparent distress. SKIN: Focused skin assessment warm/dry. HEAD: Atraumatic. Normocephalic. EYES: Pupils equal and round. No scleral icterus. No injection or drainage. ENT: No nasal bleeding or discharge. Mucous membranes pink and moist. NECK: Trachea midline. No JVD. CARDIOVASCULAR: Regular rate and rhythm. No murmur appreciated. RESPIRATORY: No accessory muscle use. Clear to auscultation. Breath sounds equal bilaterally. GASTROINTESTINAL: Abdomen soft, nondistended. Mild suprapubic tenderness without peritoneal signs. Normal bowel sounds. 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 Normal external genitalia. Scant blood in vaginal vault. Cervical os is closed. Normal- appearing cervix. MUSCULOSKELETAL: No obvious deformities. No clubbing. No cyanosis. No edema. NEUROLOGICAL: Awake and alert. No obvious cranial nerve deficits. Motor grossly within normal limits. Normal speech. PSYCHIATRIC: Appropriate mood and affect; insight and judgment normal. Data Data Last Documented VS Vital Signs Date Time Temp Pulse Resp B/P (MAP) Pulse Ox O2 Delivery O2 Flow Rate FiO2 03/11/18 03:26 76 18 138/67 (90) 98 Room Air 03/11/18 02:22 98.7 Orders Orders Beta Hcg (Quant/Titer) (03/11/18 02:33) Complete Blood Count With Diff (03/11/18 02:33) Comprehensive Metabolic Panel (03/11/18 02:33) Gc And Chlamydia Pcr (03/11/18 02:33) Wet Prep Profile (03/11/18 02:33) Urinalysis - C+S If Indicated (03/11/18 02:33) Ed Urine Pregnancytest Poc (03/11/18 02:33) Type And Screen (03/11/18 02:36) Us Pelvis (Ques Pr/Ect)W Trans (03/11/18 ) Potassium Chloride (Kcl) (03/11/18 05:00) Labs Laboratory Tests Test 03/11/18 02:20 03/11/18 02:50 03/11/18 03:25 White Blood Count 3.8 TH/MM3 Red Blood Count 4.23 MIL/MM3 Hemoglobin 13.4 GM/DL Hematocrit 38.5 % Mean Corpuscular Volume 90.9 FL Mean Corpuscular Hemoglobin 31.6 PG Mean Corpuscular Hemoglobin Concent 34.8 % Red Cell Distribution Width 12.9 % Platelet Count 171 TH/MM3 Mean Platelet Volume 6.9 FL Neutrophils (%) (Auto) 56.7 % Lymphocytes (%) (Auto) 36.2 % Monocytes (%) (Auto) 6.3 % Eosinophils (%) (Auto) 0.3 % Basophils (%) (Auto) 0.5 % Neutrophils # (Auto) 2.2 TH/MM3 Lymphocytes # (Auto) 1.4 TH/MM3 Monocytes # (Auto) 0.2 TH/MM3 Eosinophils # (Auto) 0.0 TH/MM3 Basophils # (Auto) 0.0 TH/MM3 CBC Comment DIFF FINAL Differential Comment Blood Urea Nitrogen 3 MG/DL Creatinine 0.67 MG/DL Random Glucose 93 MG/DL Total Protein 7.9 GM/DL Albumin 3.4 GM/DL Calcium Level 8.7 MG/DL Alkaline Phosphatase 44 U/L Aspartate Amino Transf (AST/SGOT) 30 U/L Alanine Aminotransferase (ALT/SGPT) 24 U/L Total Bilirubin 0.3 MG/DL Sodium Level 139 MEQ/L Potassium Level 3.0 MEQ/L Chloride Level 104 MEQ/L Carbon Dioxide Level 28.9 MEQ/L Anion Gap 6 MEQ/L Estimat Glomerular Filtration Rate 123 ML/MIN Human Chorionic Gonadotropin, Quant 171 MIU/ML Urine Color YELLOW Urine Turbidity CLEAR Urine pH 6.5 Urine Specific [place] 1.024 Urine Protein 30 mg/dL Urine Glucose (UA) NEG mg/dL Urine Ketones NEG mg/dL Urine Occult Blood MOD Urine Nitrite NEG Urine Bilirubin NEG Urine Urobilinogen 2.0 MG/DL Urine Leukocyte Esterase SMALL Urine RBC 47 /hpf Urine WBC 8 /hpf Urine Squamous Epithelial Cells 2 /hpf Urine Bacteria OCC /hpf Urine Hyaline Casts 2 /lpf Urine Mucus MANY /lpf Microscopic Urinalysis Comment CULT NOT INDICATED Clue Cells (Wet Prep) NONE SEEN Vaginal Trichomonas (Wet Prep) NONE SEEN Vaginal Yeast (Wet Prep) NONE SEEN MDM Medical Decision Making Medical Screen Exam Complete: Yes Emergency Medical Condition: Yes Differential Diagnosis Ectopic , spontaneous , threatened , missed , UTI, cystitis, BV, trichomonas, PID, appendicitis Narrative Course Vital signs reviewed. CBC: WBC 3.8, hemoglobin 13.4, hematocrit 38.5, platelets 171. CMP is remarkable for potassium 3.0. Blood type is O+. Beta-hCG is 171. 3 days ago was 147. UA: Moderate occult blood, small leukocyte esterase, 47 RBCs, 8 WBCs, occasional bacteria, many mucus. Wet prep is negative for yeast, negative for clue cells, negative for trichomonas. Pelvic ultrasound: CONCLUSION: 1. No intrauterine or ectopic is seen. Ectopic is not excluded. 2. No pelvic free fluid. Case discussed with on-call OB hospitalist Dr. Solano. Patient has mild suprapubic/uterine tenderness. There are no peritoneal signs on her exam. No free fluid seen on pelvic ultrasound. He believes that this is more likely a spontaneous and not an ectopic . The patient is safe for discharge home with repeat beta-hCG in the next 2-3 days. Patient was made aware of all findings. She is resting comfortably. Again there are no peritoneal signs and her abdominal exam. She did have a moderate amount of bleeding on pelvic exam. She is obviously upset with the news that this is most likely a miscarriage. 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 If she is unable to follow-up with her, I advised that she present to the emergency department for repeat beta -hCG in 2-3 days. She was informed on when to return to the emergency department sooner. She verbalizes understanding and agreement with plan. Diagnosis Primary Impression: First trimester bleeding Additional Impression: Hypokalemia Referrals: Corporate Development Associate 2 days Additional Instructions: Follow-up with an [employer] LEAD physician in the next 2-3 days for repeat beta-hCG. If you are unable to follow-up with an [employer] LE[employer] physician, return to the emergency department in 2-3 days for repeat beta-hCG. Return to the emergency department sooner for worsening symptoms or any other concerns as discussed. Disposition: 01 DISCHARGE HOME Condition: Stable Roger Cannon MD Mar 11, 2018 02:38
[2018-03-11 03:15] LABS: BACTERIA, URINE OCC /hpf; BILIRUBIN, URINE NEG (NEG); BLOOD, URINE MOD (NEG); GLUCOSE,URINE NEG (NEG); HYALINE CAST, URINE 2 /lpf (RARE); KETONE, URINE NEG (NEG); MUCUS URINE MANY /lpf (OCC); NITRITE,URINE NEG (NEG); PH, URINE 6.5 (5.0-8.5); SQUAMOUS EPITHELIAL CELL URINE 2 /hpf (0-5); URINE COLOR YELLOW (YELLW/STRAW); URINE LEUKOCYTE ESTERASE SMALL (NEG)
[2018-03-11 03:16] LABS: AUTOMATED NEUTROPHIL # 2.2 TH/MM3 (1.8-7.7); BASOPHIL % 0.5 % (0.0-2.0); EOSINOPHIL % 0.3 % (0.0-4.0); HEMATOCRIT 38.5 % (35.0-46.0); HEMOGLOBIN 13.4 GM/DL (11.6-15.3); LYMPH % 36.2 % (9.0-44.0); LYMPHOCYTE # 1.4 TH/MM3 (1.0-4.8); MEAN CELL VOLUME 90.9 FL (80.0-100.0); MEAN CORPUSCULAR HEMOGLOBIN 31.6 PG (27.0-34.0); MEAN CORPUSCULAR HGB CONC 34.8 % (32.0-36.0); MEAN PLATELET VOLUME 6.9 FL (7.0-11.0); MONO % 6.3 % (0.0-8.0); MONOCYTE # 0.2 TH/MM3 (0-0.9); NEUT % 56.7 % (16.0-70.0); PLATELET COUNT 171 TH/MM3 (150-450); RED BLOOD COUNT 4.23 MIL/MM3 (4.00-5.30); RED CELL DISTRIBUTION WIDTH 12.9 % (11.6-17.2); WHITE BLOOD COUNT 3.8 TH/MM3 (4.0-11.0)
[2018-03-11 03:26] VITALS: BP 138/67; PULSE 76; RESP 18; O2SAT 98
[2018-03-11 03:42] LABS: ALBUMIN 3.4 GM/DL (3.4-5.0); ALT (GPT) 24 U/L (10-53); AST (GOT) 30 U/L (15-37); BICARBONATE 28.9 MEQ/L (21.0-32.0); BLOOD UREA NITROGEN 3 MG/DL (7-18); CALCIUM 8.7 MG/DL (8.5-10.1); CHLORIDE 104 MEQ/L (98-107); CREATININE 0.67 MG/DL (0.50-1.00); GLOMERULAR FILTRATION RATE 123 ML/MIN (>89); GLUCOSE,RANDOM 93 MG/DL (74-106); SODIUM (NA) 139 MEQ/L (136-145)
[2018-03-11 03:45] LABS: ALKALINE PHOSPHATASE 44 U/L (45-117); TOTAL BILIRUBIN ADULT 0.3 MG/DL (0.2-1.0); TOTAL PROTEIN 7.9 GM/DL (6.4-8.2)
--- NOTE | 2018-03-11 04:43 | RADRPT ---
EXAM DATE/TIME: 03/11/2018 03:27 [place] COMPARISON: No previous studies available for comparison. INDICATIONS : Pelvic pain and bleeding. LAB(S): Beta-hC MEDICAL HISTORY : . SURGICAL HISTORY : None. ENCOUNTER: Initial ACUITY: 1 day PAIN SCORE: 5/10 LOCATION: Bilateral pelvis MEASUREMENTS: UTERUS: 7.8 x 4.7 x 4.3 cm ENDOMETRIAL STRIPE: 11 mm RIGHT OVARY: 1.7 x 3.2 x 1.4 cm LEFT OVARY: 3.5 x 3.0 x 1.6 cm FREE FLUID: No CROWN RUMP LENGTH: not seen = WKS DAYS FHR: not seen BPM FINDINGS: UTERUS: The myometrium has homogeneous echotexture without mass. RIGHT OVARY: Ovary contains no mass or significant cystic lesion. LEFT OVARY: Ovary contains no mass or significant cystic lesion. MISCELLANEOUS: No free fluid. CONCLUSION: 1. No intrauterine or ectopic is seen. Ectopic is not excluded. 2. No pelvic free fluid. Stefano Oconnor MD on March 11, 2018 at 4:41 Board Certified Radiologist. This report was verified electronically.
[2018-03-11] MEDS ORDERED: POTASSIUM CHLORIDE 20 MEQ CONTROLLED RELEASE TAB PO ONE (05:00)
[2018-03-11] MEDS ORDERED: ACETAMINOPHEN 325 MG TAB PO ONE (05:15)
== END 2018-03-11 05:30 | disposition home or self-care (01) ==
LOC: NEPC 02:18
DX: O20.9 Hemorrhage in early pregnancy, unspecified (principal); O99.282 Endocrine, nutritional and metabolic diseases complicating pregnancy, second trimester; E87.6 Hypokalemia; Z3A.16 16 weeks gestation of pregnancy
CPT/HCPCS: 76700; 76817; 80053; 81001; 84702; 84703; 85025; 86850; 86900; 86901; 87210; 87491; 87591; 99284

== ENCOUNTER 2018-03-13 15:02 | Emergency (ER) | payer MEDICAID ==
[2018-03-13 15:30] VITALS: BP 142/75; PULSE 77; RESP 18; TEMP 99.8; O2SAT 99
--- NOTE | 2018-03-13 16:24 | PD ---
HPI Chief Complaint: Related Problem Time Seen by Provider: 15:35 Travel History International Travel<30 days: No Contact w/Intl Traveler<30days: No Traveled to known affect area: No History of Present Illness HPI Patient is a 32-year-old female presents emergency department for reevaluation of abdominal cramping and vaginal bleeding in the setting of . Patient has been seen here evaluated twice, her hCG has steadily increased albeit slower than what would be expected for a normal intrauterine . On 03/08 her hCG was 147, 412 is 171, today is 186. Patient did have an ultrasound on 412 showing no intrauterine or ectopic is seen ectopic is not excluded. No pelvic free fluid. Patient states that she is still having intermittent abdominal cramping and some vaginal spotting but not any heavy vaginal bleeding and no passage of clots or tissue. States the pain is been constant ever since leaving the hospital. PFSH Past Medical History Anxiety: Yes (PANIC ATTACKS) Diminished Hearing: No Gestational Age in Weeks: 16 Hypertension: Yes Integumentary: Yes (PSORIASIS) Immunizations Current: Yes Tetanus Vaccination: > 5 Years Influenza Vaccination: No ?: : 4 Para: 3 Miscarriage: 0 : 0 Past Surgical History Gynecologic Surgery: Yes (CYST) Social History Alcohol Use: Yes (OCC) Tobacco Use: No (QUIT 1 MONTH ) Substance Use: Yes (MARIJUANA OCC) Allergies-Medications (Allergen,Severity, Reaction): Coded Allergies: aspirin (Unverified Allergy, Severe, DIZZY/VOMITING/STOMACH PAIN, 03/13/18) ibuprofen (Unverified Adverse Reaction, Intermediate, Rash, 03/13/18) PT HAS PSORIASIS AND GETS FLARE UPS WHEN SHE TAKE IBUPROFEN Reported Meds & Prescriptions Reported Meds & Active Scripts Active Vitamins Tablet (Pnv No.95/Ferrous Fum/Folic AC) 28 Mg Iron-800 Mcg Tablet 1 Tab PO ONCE Tamiflu (Oseltamivir Phosphate) 75 Mg Cap 75 Mg PO BID 5 Days Review of Systems Except as stated in HPI: all other systems reviewed are Neg Physical Exam Narrative GENERAL: Well-developed well-nourished no obvious distress SKIN: Focused skin assessment warm/dry. HEAD: Atraumatic. Normocephalic. EYES: Pupils equal and round. No scleral icterus. No injection or drainage. ENT: No nasal bleeding or discharge. Mucous membranes pink and moist. NECK: Trachea midline. No JVD. CARDIOVASCULAR: Regular rate and rhythm. No murmur appreciated. RESPIRATORY: No accessory muscle use. Clear to auscultation. Breath sounds equal bilaterally. GASTROINTESTINAL: Abdomen soft, non-tender, nondistended. Hepatic and splenic margins not palpable. Abdomen is benign, no percussive tenderness, soft, no rebound tenderness MUSCULOSKELETAL: No obvious deformities. No clubbing. No cyanosis. No edema. NEUROLOGICAL: Awake and alert. No obvious cranial nerve deficits. Motor grossly within normal limits. Normal speech. PSYCHIATRIC: Appropriate mood and affect; insight and judgment normal. Data Data Last Documented VS Vital Signs Date Time Temp Pulse Resp B/P (MAP) Pulse Ox O2 Delivery O2 Flow Rate FiO2 03/13/18 15:30 99.8 77 18 142/75 (97) 99 Orders Orders Bhcg Screen Qualitative (03/13/18 15:35) Us Pelvis (Ques Pr/Ect)W Trans (03/13/18 17:31) Labs Laboratory Tests Test 03/13/18 16:15 Beta HCG, Qualitative 186 MIU/ML MDM Medical Decision Making Medical Screen Exam Complete: Yes Emergency Medical Condition: Yes Differential Diagnosis , ectopic , Rh mismatch has already been excluded. Narrative Course Patient 32-year-old female presents emergency department with continued abdominal cramping wrapping around her sides, could be consistent with contractions. She still having some small vaginal spotting per her history, I recommended a pelvic exam and she deferred at this time. Her beta hCG is continuing to climb and is 187 today. I discussed with Dr. Chadwick at 1700 shift change to follow-up an ultrasound of ordered to reassess the patient for possible ectopic . Her abdomen is fairly benign and I do not suspect any ruptured ectopic . She is Rh+ Darryn Turcios MD Mar 13, 2018 16:24
--- NOTE | 2018-03-13 18:27 | PD ---
Physical Exam Narrative GENERAL: SKIN: Warm and dry. HEAD: Atraumatic. Normocephalic. EYES: Pupils equal and round. No scleral icterus. No injection or drainage. ENT: No nasal bleeding or discharge. Mucous membranes pink and moist. NECK: Trachea midline. No JVD. CARDIOVASCULAR: Regular rate and rhythm. RESPIRATORY: No accessory muscle use. Clear to auscultation. Breath sounds equal bilaterally. GASTROINTESTINAL: Abdomen soft, non-tender, nondistended. No rebound/guarding/ rigidity MUSCULOSKELETAL: Extremities without clubbing, cyanosis, or edema. No obvious deformities. NEUROLOGICAL: Awake and alert. No obvious cranial nerve deficits. Motor grossly within normal limits. Five out of 5 muscle strength in the arms and legs. Normal speech. PSYCHIATRIC: Appropriate mood and affect; insight and judgment normal. Data Data Last Documented VS Vital Signs Date Time Temp Pulse Resp B/P (MAP) Pulse Ox O2 Delivery O2 Flow Rate FiO2 03/13/18 15:30 99.8 77 18 142/75 (97) 99 Orders Orders Bhcg Screen Qualitative (03/13/18 15:35) Us Pelvis (Ques Pr/Ect)W Trans (03/13/18 17:31) Labs Laboratory Tests Test 03/13/18 16:15 Beta HCG, Qualitative 186 MIU/ML MDM Medical Record Reviewed: Yes Supervised Visit with [facility]: No Narrative Course Advised patient that elevation of her ECG although is going up is not going up as the expected rate of 2-3 times every 48-72 hours, therefore I believe that this is the beginning of an abnormal regnancy such as a miscarriage whether this is a missed AB versus inevitable AB we may be in the middle of. Last ultrasound, performed on March 11 did not show any adnexal masses, however due to the low hCG understandably did not show an IUP either. 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
== END 2018-03-13 19:10 | disposition home or self-care (01) ==
LOC: NEPD 15:02
DX: O20.0 Threatened abortion (principal); Z3A.16 16 weeks gestation of pregnancy
CPT/HCPCS: 84703; 99283

== ENCOUNTER 2018-04-01 17:56 | Emergency (ER) | payer MEDICAID ==
[~2018-04-01] VITALS: Ht 167.6 cm; Wt 94.5 kg
[2018-04-01 18:02] VITALS: BP 137/83; PULSE 100; RESP 16; TEMP 98.6; O2SAT 98
--- NOTE | 2018-04-01 18:29 | PD ---
HPI Chief Complaint: Related Problem Time Seen by Provider: 18:05 Travel History International Travel<30 days: No Contact w/Intl Traveler<30days: No Traveled to known affect area: No History of Present Illness HPI The patient is a 32-year-old female who presents to the emergency department for vaginal spotting and lower abdominal cramping and . The patient is a whose last menstrual cycle was at the beginning of January. The patient estimates she is 8 weeks , however, she was seen in mid February and had a beta hCG that was only 186. Ultrasound at that time could not reveal an IUP or ectopic . The patient followed up with the biometrics head earlier today who recommended she come to the emergency department for further evaluation. The patient denies any previous vaginal bleeding or cramping during her previous 3 pregnancies. She does complain of mild abdominal lower pelvic cramping earlier today which has resolved. The spotting is light without any visible clots. She denies any dysuria, frequency , urgency, or vaginal discharge. PFS Past Medical History Anxiety: Yes (PANIC ATTACKS) Diminished Hearing: No Gestational Age in Weeks: 16 Hypertension: Yes Integumentary: Yes (PSORIASIS) Immunizations Current: Yes Tetanus Vaccination: Unknown Influenza Vaccination: No ?: LMP: JANUARY 2018 : 4 Para: 3 Miscarriage: 0 : 0 Past Surgical History Gynecologic Surgery: Yes (CYST) Social History Alcohol Use: No Tobacco Use: Yes Substance Use: Yes (STOPPED MARIJUANA LAST MONTH) Allergies-Medications (Allergen,Severity, Reaction): Coded Allergies: aspirin (Unverified Allergy, Severe, DIZZY/VOMITING/STOMACH PAIN, 04/01/18) ibuprofen (Unverified Adverse Reaction, Intermediate, Rash, 04/01/18) PT HAS PSORIASIS AND GETS FLARE UPS WHEN SHE TAKE IBUPROFEN Reported Meds & Prescriptions Reported Meds & Active Scripts Active Vitamins Tablet (Pnv No.95/Ferrous Fum/Folic AC) 28 Mg Iron-800 Mcg Tablet 1 Tab PO ONCE Review of Systems Except as stated in HPI: all other systems reviewed are Neg General / Constitutional: No: Fever Cardiovascular: No: Chest Pain or Discomfort Respiratory: No: Shortness of Breath Gastrointestinal: No: Nausea, Vomiting, Abdominal Pain Genitourinary: Positive: Pelvic Pain (Cramping), Vaginal Bleeding (Spotting), No: Dysuria Musculoskeletal: No: Edema Neurologic: No: Dizziness Physical Exam Narrative GENERAL: Awake, alert, pleasant 32-year-old female who appears her stated age and is in no acute respiratory distress. SKIN: Focused skin assessment warm/dry. HEAD: Atraumatic. Normocephalic. EYES: No injection or drainage. ENT: No nasal bleeding or discharge. Mucous membranes pink and moist. NECK: Trachea midline. No JVD. GASTROINTESTINAL: Abdomen soft, non-tender, nondistended. No rebound tenderness. No guarding or rigidity. Back: No CVA tenderness. Genitourinary: The exam was performed in the presence of a female nurse. External examination reveals blood at the introitus. Speculum examination reveals one in the vaginal vault. Cervix is closed but does reveal blood at the cervical loss. MUSCULOSKELETAL: No obvious deformities. No clubbing. No cyanosis. No edema. NEUROLOGICAL: Awake and alert. No obvious cranial nerve deficits. Motor grossly within normal limits. Normal speech. PSYCHIATRIC: Appropriate mood and affect; insight and judgment normal. Data Data Last Documented VS Vital Signs Date Time Temp Pulse Resp B/P (MAP) Pulse Ox O2 Delivery O2 Flow Rate FiO2 04/01/18 18:19 18 04/01/18 18:02 98.6 100 137/83 (101) 98 Orders Orders Beta Hcg (Quant/Titer) (04/01/18 18:18) Urinalysis - C+S If Indicated (04/01/18 18:18) Ed Urine Pregnancytest Poc (04/01/18 18:18) Us Pelvis (Ques Pr/Ect)W Trans (04/01/18 ) [facility] Medical Decision Making Medical Screen Exam Complete: Yes Emergency Medical Condition: Yes Medical Record Reviewed: Yes Differential Diagnosis Differential diagnosis includes missed AB, complete AB, incomplete AB, normal , ectopic , UTI. Narrative Course IV was established, labs are drawn and sent, and the patient was placed on cardiac telemetry monitoring and continuous pulse oximetry monitoring. Bedside ultrasound was performed, there is no visible IUP. Therefore, bedside UA test was obtained. A pelvic exam was performed in the presence of a female nurse. Review the patient's EMR, the patient's blood type was O+ on March 11, 2018, therefore, no indication for RhoGam. The patient's beta hCG on March 13, 2018 was 186, up from the previous one of 171. Bedside UA test was positive. Therefore, official ultrasound was ordered to evaluate for ectopic versus IUP. The patient was signed out to the oncoming physician at 7 PM with beta-hCG and ultrasound pending. Procedures Procedure Narrative A bedside ultrasound was performed with a curvilinear probe. I cannot visualize an IUP. The patient tolerated the procedure without difficulty. There is no obvious complications. Diagnosis Primary Impression: Vaginal bleeding during Condition: Stable Morris Winston MD April 01, 2018 18:29
[2018-04-01] MEDS ORDERED: ACETAMINOPHEN 325 MG TAB PO ONE (19:00)
[2018-04-01 19:04] LABS: AMORPHOUS SEDIMENT, URINE RARE; BACTERIA, URINE OCC /hpf; BILIRUBIN, URINE NEG (NEG); BLOOD, URINE MOD (NEG); GLUCOSE,URINE NEG (NEG); KETONE, URINE NEG (NEG); MUCUS URINE FEW /lpf (OCC); NITRITE,URINE NEG (NEG); PH, URINE 6.5 (5.0-8.5); SQUAMOUS EPITHELIAL CELL URINE 10 /hpf (0-5); URINE COLOR YELLOW (YELLW/STRAW); URINE LEUKOCYTE ESTERASE SMALL (NEG)
[2018-04-01 19:52] VITALS: RESP 16
--- NOTE | 2018-04-01 20:21 | RADRPT ---
EXAM DATE/TIME: 04/01/2018 19:08 [facility] COMPARISON: No previous studies available for comparison. INDICATIONS : Pelvic pain and bleeding. LAB(S): Beta-hC MEDICAL HISTORY : . SURGICAL HISTORY : None. ENCOUNTER: Subsequent ACUITY: 1 month PAIN SCORE: 3/10 LOCATION: Bilateral pelvis MEASUREMENTS: UTERUS: 7.5 x 4.7 x 3.8 cm ENDOMETRIAL STRIPE: 5 mm RIGHT OVARY: 2.3 x 2.1 x 1.7 cm LEFT OVARY: 3.7 x 3.7 x 2.9 cm FREE FLUID: No FINDINGS: UTERUS: The myometrium has homogeneous echotexture without mass. RIGHT OVARY: Ovary contains no mass or significant cystic lesion. LEFT OVARY: 2.3 cm cyst present. MISCELLANEOUS: No free fluid. CONCLUSION: 1. No evidence for uterine . 2.3 cm cyst left ovary. Tima Boyce MD on April 01, 2018 at 20:16 Board Certified Radiologist. This report was verified electronically.
--- NOTE | 2018-04-01 21:58 | PD ---
Physical Exam Date Seen by Provider: April 01, 2018 Time Seen by Provider: 20:00 Narrative I told the pt that the US did not show an I U P and she was very upset I explained that the level of BHCG was low for dates and it was probably low and she would need to return for repeat blood test but reviewing the US from 2 weeks ago with Radilogist Robin he says both times no signs of , I looked at the images as well. Pt became very agitated started screaming and then walked out before d/c papers were given, She was sent in by her PCP and will follow . bhg was 147 2 weeks ago and today only 792 , missed AB Data Data Last Documented VS Vital Signs Date Time Temp Pulse Resp B/P (MAP) Pulse Ox O2 Delivery O2 Flow Rate FiO2 04/01/18 19:52 16 04/01/18 18:02 98.6 100 137/83 (101) 98 Orders Orders Beta Hcg (Quant/Titer) (04/01/18 18:18) Urinalysis - C+S If Indicated (04/01/18 18:18) Ed Urine Pregnancytest Poc (04/01/18 18:18) Us Pelvis (Ques Pr/Ect)W Trans (04/01/18 ) Acetaminophen (Tylenol) (04/01/18 19:00) Ed Discharge Order (04/01/18 21:58) Labs Laboratory Tests Test 04/01/18 18:30 Urine Color YELLOW Urine Turbidity HAZY Urine pH 6.5 Urine Specific [place] 1.028 Urine Protein 30 mg/dL Urine Glucose (UA) NEG mg/dL Urine Ketones NEG mg/dL Urine Occult Blood MOD Urine Nitrite NEG Urine Bilirubin NEG Urine Urobilinogen 4.0 MG/DL Urine Leukocyte Esterase SMALL Urine RBC 16 /hpf Urine WBC 7 /hpf Urine Squamous Epithelial Cells 10 /hpf Urine Amorphous Sediment RARE Urine Bacteria OCC /hpf Urine Mucus FEW /lpf Microscopic Urinalysis Comment CULT NOT INDICATED Human Chorionic Gonadotropin, Quant 792 MIU/ML MDM Supervised Visit with [facility]: No Differential Diagnosis missed AB vs early vs threatened AB vs ectopic Narrative Course I explain to pt that there is no IUP seen on this US and no IUP seen on last US she had 2 weeks ago in our ER, Beta HCG only 792 and missed AB is the most ikely diagnosis, I explain this to her and tell her I am going to call the radiologist to discuss the cyst on left ovary. The cyst is simple 2.3 cm without signs of being a complex cyst that could be ectopic, Dr Boyce feels it is simple cyst and that it is not a ,, I returned to room to discharge and explain again the fact that it seems to be a miised AB pt had walked out prior to gtting final d/c papaers with follow up info. 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
[2018-04-06] MEDS ORDERED: PERC5TAB12 PO (09:43)
== END 2018-04-01 22:06 | disposition home or self-care (01) ==
LOC: NEPE 17:56
DX: O02.1 Missed abortion (principal)
CPT/HCPCS: 76700; 76817; 81001; 84702; 84703; 99284

== ENCOUNTER 2018-04-03 17:13 | Emergency (ER) | payer MEDICAID ==
[~2018-04-03] VITALS: Ht 167.6 cm; Wt 95.0 kg
[~2018-04-03 17:13] MED LIST changes: -OSEL75 PO
[2018-04-03 17:23] VITALS: BP 135/86; PULSE 79; RESP 20; TEMP 98.5; O2SAT 100
[2018-04-03] MEDS ORDERED: MORPHINE SULFATE 2 MG/ML SYRINGE IV PUSH ONE (17:45)
--- NOTE | 2018-04-03 17:57 | PD ---
HPI Chief Complaint: Related Problem Time Seen by Provider: 17:38 Travel History International Travel<30 days: No Contact w/Intl Traveler<30days: No Traveled to known affect area: No History of Present Illness HPI 32-year-old female , LMP in December of this year, brought in by ambulance for evaluation of severe abdominal pain and vaginal bleeding. Patient reports that the pain started about an hour ago, is severe, left-sided, sharp, constant , worse with movements. The patient has had intermittent vaginal bleeding for the last month. I evaluated the patient on 03/11/17, and at that time she had a beta-hCG of 171 with a pelvic ultrasound that showed no intrauterine or ectopic , no pelvic free fluid. It was felt at that time by the OB hospitalist that this was more likely a miscarriage. She was seen in the emergency department 2 days later and her beta hCG was only 186. She was seen again 2 days ago in the ED and had a beta-hCG of 792 with a pelvic ultrasound that showed no evidence for uterine with a 2.3 cm cyst on the left ovary. She denies history of abdominal surgeries. No fevers. Her blood type is O+. PFSH Past Medical History Anxiety: Yes (PANIC ATTACKS) Diminished Hearing: No Gestational Age in Weeks: 16 Hypertension: Yes Integumentary: Yes (PSORIASIS) Immunizations Current: Yes ?: Not : 4 Para: 3 Miscarriage: 0 : 0 Past Surgical History Gynecologic Surgery: Yes (CYST) Social History Alcohol Use: Yes Tobacco Use: Yes (1 PPK) Substance Use: Yes (STOPPED MARIJUANA LAST MONTH) Allergies-Medications (Allergen,Severity, Reaction): Coded Allergies: aspirin (Verified Allergy, Severe, DIZZY/VOMITING/STOMACH PAIN, 04/03/18) ibuprofen (Verified Adverse Reaction, Intermediate, Rash, 04/03/18) PT HAS PSORIASIS AND GETS FLARE UPS WHEN SHE TAKE IBUPROFEN Reported Meds & Prescriptions Reported Meds & Active Scripts Active Vitamins Tablet (Pnv No.95/Ferrous Fum/Folic AC) 28 Mg Iron-800 Mcg Tablet 1 Tab PO ONCE Review of Systems Except as stated in HPI: all other systems reviewed are Neg Physical Exam Narrative GENERAL: Well-developed, well-nourished, comfortable, no apparent distress SKIN: Focused skin assessment warm/dry. HEAD: Atraumatic. Normocephalic. EYES: Pupils equal and round. No scleral icterus. No injection or drainage. ENT: Mucous membranes pink and moist. NECK: Trachea midline. No JVD. CARDIOVASCULAR: Regular rate and rhythm. RESPIRATORY: No accessory muscle use. Clear to auscultation. Breath sounds equal bilaterally. GASTROINTESTINAL: Abdomen soft, nondistended. Moderate left lower quadrant and left flank tenderness without peritoneal signs. Mild diffuse tenderness. MUSCULOSKELETAL: No obvious deformities. No clubbing. No cyanosis. No edema. NEUROLOGICAL: Awake and alert. No obvious cranial nerve deficits. Motor grossly within normal limits. Normal speech. PSYCHIATRIC: Appropriate mood and affect; insight and judgment normal. Data Data Last Documented VS Vital Signs Date Time Temp Pulse Resp B/P (MAP) Pulse Ox O2 Delivery O2 Flow Rate FiO2 04/03/18 17:23 98.5 79 20 135/86 (102) 100 Orders Orders Beta Hcg (Quant/Titer) (04/03/18 17:43) Complete Blood Count With Diff (04/03/18 17:43) Comprehensive Metabolic Panel (04/03/18 17:43) Ua Includes Microscopic (04/03/18 17:43) Lipase (04/03/18 17:43) Prothrombin Time / Inr (Pt) (04/03/18 17:43) Act Partial Throm Time (Ptt) (04/03/18 17:43) Morphine Inj (Morphine Inj) (04/03/18 17:45) Morphine Inj (Morphine Inj) (04/03/18 18:00) Us Pelvis (Ques Pr/Ect)W Trans (04/03/18 ) Labs Laboratory Tests Test 04/03/18 17:45 04/03/18 18:35 White Blood Count 7.5 TH/MM3 Red Blood Count 4.17 MIL/MM3 Hemoglobin 13.0 GM/DL Hematocrit 38.0 % Mean Corpuscular Volume 91.2 FL Mean Corpuscular Hemoglobin 31.3 PG Mean Corpuscular Hemoglobin Concent 34.3 % Red Cell Distribution Width 13.5 % Platelet Count 249 TH/MM3 Mean Platelet Volume 7.2 FL Neutrophils (%) (Auto) 57.3 % Lymphocytes (%) (Auto) 32.1 % Monocytes (%) (Auto) 7.6 % Eosinophils (%) (Auto) 2.1 % Basophils (%) (Auto) 0.9 % Neutrophils # (Auto) 4.3 TH/MM3 Lymphocytes # (Auto) 2.4 TH/MM3 Monocytes # (Auto) 0.6 TH/MM3 Eosinophils # (Auto) 0.2 TH/MM3 Basophils # (Auto) 0.1 TH/MM3 CBC Comment DIFF FINAL Differential Comment Prothrombin Time 11.2 SEC Prothromb Time International Ratio 1.1 RATIO Activated Partial Thromboplast Time 28.0 SEC Blood Urea Nitrogen 7 MG/DL Creatinine 0.87 MG/DL Random Glucose 87 MG/DL Total Protein 7.9 GM/DL Albumin 4.0 GM/DL Calcium Level 9.3 MG/DL Alkaline Phosphatase 47 U/L Aspartate Amino Transf (AST/SGOT) 23 U/L Alanine Aminotransferase (ALT/SGPT) 23 U/L Total Bilirubin 0.8 MG/DL Sodium Level 139 MEQ/L Potassium Level 3.2 MEQ/L Chloride Level 106 MEQ/L Carbon Dioxide Level 22.2 MEQ/L Anion Gap 11 MEQ/L Estimat Glomerular Filtration Rate 91 ML/MIN Lipase 82 U/L Human Chorionic Gonadotropin, Quant 939 MIU/ML Urine Color YELLOW Urine Turbidity HAZY Urine pH 5.5 Urine Specific [place] 1.049 Urine Protein 30 mg/dL Urine Glucose (UA) NEG mg/dL Urine Ketones 40 mg/dL Urine Occult Blood MOD Urine Nitrite NEG Urine Bilirubin NEG Urine Urobilinogen 4.0 MG/DL Urine Leukocyte Esterase MOD Urine RBC 23 /hpf Urine WBC 12 /hpf Urine Squamous Epithelial Cells 7 /hpf Urine Mucus MANY /lpf MDM Medical Decision Making Medical Screen Exam Complete: Yes Emergency Medical Condition: Yes Differential Diagnosis Ectopic , miscarriage, ovarian cyst, ovarian torsion Narrative Course Vital signs are within normal limits. CBC is unremarkable. CMP is remarkable for potassium 3.2, otherwise unremarkable. Lipase is 82. Beta-hCG is 939. UA shows hazy urine, moderate occult blood, moderate leukocyte esterase, 23 RBCs , 12 WBCs, many mucus. Pelvic ultrasound: CONCLUSION: 1. No intrauterine gestational sac is identified. Differential diagnosis includes very early intrauterine , missed and ectopic . Correlation with serial beta-hCG levels is recommended. 2. Left ovarian cystic lesion measuring 3.6 x 2.2 x 3.4 cm. Patient's beta-hCG has not been doubling appropriately. 2 days ago it was 792. Case discussed with on-call OB hospitalist Dr. Pierce who will evaluate the patient in the ED. 9:10 PM: The patient was evaluated by OB hospitalist Dr. Pierce. This is a nonviable , likely ectopic. The patient is a candidate for methotrexate which he will write for. He believes the patient is stable for discharge home and will arrange for outpatient follow-up. Patient advised on when to return to the emergency department. She verbalizes understanding and agreement with plan. Diagnosis Primary Impression: Nonviable Additional Impression: Left ovarian cyst Referrals: Automotive Service Director 3 days Additional Instructions: Follow-up as an outpatient as advised by OB hospitalist Dr. Pierce for repeat labs. Return to the emergency department for worsening symptoms or any other concerns. Scripts Oxycodone-Acetaminophen (Percocet) 5-325 mg Tab 1 TAB PO Q6H Y for PAIN, #10 TAB 0 Refills Prov: Roger Cannon MD 04/03/18 Disposition: 01 DISCHARGE HOME Condition: Stable Roger Cannon MD April 03, 2018 17:57
[2018-04-03] MEDS ORDERED: MORPHINE SULFATE 8 MG/ML INJ IV PUSH ONE (18:00)
[2018-04-03 18:13] LABS: AUTOMATED NEUTROPHIL # 4.3 TH/MM3 (1.8-7.7); BASOPHIL # 0.1 TH/MM3 (0-0.2); BASOPHIL % 0.9 % (0.0-2.0); EOSINOPHIL # 0.2 TH/MM3 (0-0.4); EOSINOPHIL % 2.1 % (0.0-4.0); LYMPH % 32.1 % (9.0-44.0); LYMPHOCYTE # 2.4 TH/MM3 (1.0-4.8); MEAN CELL VOLUME 91.2 FL (80.0-100.0); MEAN CORPUSCULAR HEMOGLOBIN 31.3 PG (27.0-34.0); MEAN CORPUSCULAR HGB CONC 34.3 % (32.0-36.0); MEAN PLATELET VOLUME 7.2 FL (7.0-11.0); MONO % 7.6 % (0.0-8.0); MONOCYTE # 0.6 TH/MM3 (0-0.9); NEUT % 57.3 % (16.0-70.0); PLATELET COUNT 249 TH/MM3 (150-450); RED BLOOD COUNT 4.17 MIL/MM3 (4.00-5.30); RED CELL DISTRIBUTION WIDTH 13.5 % (11.6-17.2); WHITE BLOOD COUNT 7.5 TH/MM3 (4.0-11.0)
[2018-04-03 18:18] LABS: INTERNATIONAL NORMALIZED RATIO 1.1 RATIO; PROTHROMBIN TIME - PATIENT 11.2 SEC (9.8-11.6)
[2018-04-03 18:26] LABS: ALT (GPT) 23 U/L (10-53); AST (GOT) 23 U/L (15-37); BICARBONATE 22.2 MEQ/L (21.0-32.0); BLOOD UREA NITROGEN 7 MG/DL (7-18); CALCIUM 9.3 MG/DL (8.5-10.1); CHLORIDE 106 MEQ/L (98-107); CREATININE 0.87 MG/DL (0.50-1.00); GLOMERULAR FILTRATION RATE 91 ML/MIN (>89); GLUCOSE,RANDOM 87 MG/DL (74-106); SODIUM (NA) 139 MEQ/L (136-145)
[2018-04-03 18:31] LABS: ALKALINE PHOSPHATASE 47 U/L (45-117); TOTAL BILIRUBIN ADULT 0.8 MG/DL (0.2-1.0); TOTAL PROTEIN 7.9 GM/DL (6.4-8.2)
[2018-04-03 18:56] LABS: BILIRUBIN, URINE NEG (NEG); BLOOD, URINE MOD (NEG); GLUCOSE,URINE NEG (NEG); KETONE, URINE 40 mg/dL (NEG); MUCUS URINE MANY /lpf (OCC); NITRITE,URINE NEG (NEG); PH, URINE 5.5 (5.0-8.5); SQUAMOUS EPITHELIAL CELL URINE 7 /hpf (0-5); URINE COLOR YELLOW (YELLW/STRAW); URINE LEUKOCYTE ESTERASE MOD (NEG)
--- NOTE | 2018-04-03 20:15 | RADRPT ---
EXAM DATE/TIME: 04/03/2018 19:11 [facility] COMPARISON: US PELVIS (QUEST PREG/ECTOPIC) W/TRANSVAG, April 01, 2018, 19:08. INDICATIONS : Bleeding and pain. LAB(S): Beta-hC MEDICAL HISTORY : Ovarian cysts. SURGICAL HISTORY : None. ENCOUNTER: Initial ACUITY: 3 days PAIN SCORE: 5/10 LOCATION: Bilateral pelvis MEASUREMENTS: UTERUS: 7.5 x 3.5 x 3.5 cm ENDOMETRIAL STRIPE: 3 mm RIGHT OVARY: 3.2 x 1.8 x 1.4 cm LEFT OVARY: 4.9 x 4.0 x 4.9 cm FREE FLUID: No CROWN RUMP LENGTH: = WKS DAYS FHR: BPM FINDINGS: No intrauterine gestational sac is identified. Differential diagnosis includes very early intrauterin e , missed and ectopic . Correlation with serial beta-hCG levels is recomm ended. There is a cystic lesion within the left ovary measured 3.6 x 2.2 x 3.4 cm. The right ovary is unremarkable. No free fluid is noted within the cul-de-sac. CONCLUSION: 1. No intrauterine gestational sac is identified. Differential diagnosis includes very early intraute rine , missed and ectopic . Correlation with serial beta-hCG levels is rec ommended. 2. Left ovarian cystic lesion measuring 3.6 x 2.2 x 3.4 cm. Darryn Muñoz MD on April 03, 2018 at 20:10 Board Certified Radiologist. This report was verified electronically.
[2018-04-03] MEDS ORDERED: PERC5TAB12 PO (21:15)
--- NOTE | 2018-04-03 21:28 | PD.CONS ---
HPI Chief Complaint Vaginal bleeding, abdominal pain Date Seen: April 03, 2018 Time Seen: 21:18 Travel History International Travel<30 Days: No Contact w/Intl Traveler<30Days: No Known Affected Area: No History of Present Illness HPI 32-year-old 4 para 3 who presented to the emergency room with a complaint of vaginal bleeding and lower abdominal pain left greater than right. She has had none doubling quantitative beta hCG studies indicating an abnormal . Ultrasound tonight failed to reveal an intrauterine and no evidence of hemoperitoneum or pelvic mass suggestive of ectopic was identified either. Her beta hCG tonight was over 900. She reports pain in the lower abdomen left greater than right which feels like menstrual cramps. She denies any lightheadedness or fainting. No dysuria hematuria or frequency. No change in her bowel habits. She has had bleeding less than a period off and on for a month. Para: 3 : 4 History Past Medical History Narrative Medical Psoriasis Obstetric History Obstetric History 3 prior vaginal deliveries No history of STD or PID Past Surgical History Narrative Surgical Bartholin's cyst Family History Family History: Negative Social History Alcohol Use: Yes Tobacco Use: Yes (10 per day) Substance Abuse: Yes (Marijuana) Allergies-Medications (Allergen,Severity, Reaction): Coded Allergies: aspirin (Verified Allergy, Severe, DIZZY/VOMITING/STOMACH PAIN, 04/03/18) ibuprofen (Verified Adverse Reaction, Intermediate, Rash, 04/03/18) PT HAS PSORIASIS AND GETS FLARE UPS WHEN SHE TAKE IBUPROFEN Home Meds Active Scripts Oxycodone-Acetaminophen (Percocet) 5-325 mg Tab, 1 TAB PO Q6H Y for PAIN, #10 TAB 0 Refills Prov:Roger Cannon MD 04/03/18 Pnv No.95/Ferrous Fum/Folic AC ( Vitamins Tablet) 28 Mg Iron-800 Mcg Tablet, 1 TAB PO ONCE, #30 Prov:Leia Riojas MD 03/08/18 Discontinued Scripts Oseltamivir (Tamiflu) 75 Mg Cap, 75 MG PO BID for Mgmt Viral Infection for 5 Days, #10 CAP 0 Refills Prov:Leia Riojas MD 03/08/18 Review of Systems Except as stated in HPI: all other systems reviewed are Neg Physical Exam Vital Signs Date Time Temp Pulse Resp B/P (MAP) Pulse Ox O2 Delivery O2 Flow Rate FiO2 04/03/18 17:23 98.5 79 20 135/86 (102) 100 Narrative GENERAL: Well-nourished, well-developed patient. She moves easily in the bed. SKIN: Warm and dry. HEAD: Normocephalic and atraumatic. EYES: No scleral icterus. No injection or drainage. ENT: No nasal drainage noted. Mucous membranes pink. Airway patent. NECK: Supple, trachea midline. No JVD. CARDIOVASCULAR: Regular rate and rhythm without murmurs, gallops, or rubs. RESPIRATORY: Breath sounds equal bilaterally. No accessory muscle use. ABDOMEN/GI: Abdomen soft, non-tender except to deep palpation in the lower abdomen, bowel sounds present, no rebound, no guarding Gravid to [-] weeks size Fundal Height: [-] GENITOURINARY: External Genitalia: intact and normal in appearance BUS glands: [Negative-] EXTREMITIES: No cyanosis or edema. BACK: Nontender without obvious deformity. No CVA tenderness. NEUROLOGICAL: Awake and alert. Motor and sensory grossly within normal limits. Five out of 5 muscle strength in all muscle groups. Normal speech. Data Data Orders Orders Beta Hcg (Quant/Titer) (04/03/18 17:43) Complete Blood Count With Diff (04/03/18 17:43) Comprehensive Metabolic Panel (04/03/18 17:43) Ua Includes Microscopic (04/03/18 17:43) Lipase (04/03/18 17:43) Prothrombin Time / Inr (Pt) (04/03/18 17:43) Act Partial Throm Time (Ptt) (04/03/18 17:43) Morphine Inj (Morphine Inj) (04/03/18 17:45) Morphine Inj (Morphine Inj) (04/03/18 18:00) Us Pelvis (Ques Pr/Ect)W Trans (04/03/18 ) Labs Laboratory Tests Test 04/03/18 17:45 04/03/18 18:35 White Blood Count 7.5 Red Blood Count 4.17 Hemoglobin 13.0 Hematocrit 38.0 Mean Corpuscular Volume 91.2 Mean Corpuscular Hemoglobin 31.3 Mean Corpuscular Hemoglobin Concent 34.3 Red Cell Distribution Width 13.5 Platelet Count 249 Mean Platelet Volume 7.2 Neutrophils (%) (Auto) 57.3 Lymphocytes (%) (Auto) 32.1 Monocytes (%) (Auto) 7.6 Eosinophils (%) (Auto) 2.1 Basophils (%) (Auto) 0.9 Neutrophils # (Auto) 4.3 Lymphocytes # (Auto) 2.4 Monocytes # (Auto) 0.6 Eosinophils # (Auto) 0.2 Basophils # (Auto) 0.1 CBC Comment DIFF FINAL Differential Comment Prothrombin Time 11.2 Prothromb Time International Ratio 1.1 Activated Partial Thromboplast Time 28.0 Blood Urea Nitrogen 7 Creatinine 0.87 Random Glucose 87 Total Protein 7.9 Albumin 4.0 Calcium Level 9.3 Alkaline Phosphatase 47 Aspartate Amino Transf (AST/SGOT) 23 Alanine Aminotransferase (ALT/SGPT) 23 Total Bilirubin 0.8 Sodium Level 139 Potassium Level 3.2 Chloride Level 106 Carbon Dioxide Level 22.2 Anion Gap 11 Estimat Glomerular Filtration Rate 91 Lipase 82 Human Chorionic Gonadotropin, Quant 939 Urine Color YELLOW Urine Turbidity HAZY Urine pH 5.5 Urine Specific [place] 1.049 Urine Protein 30 Urine Glucose (UA) NEG Urine Ketones 40 Urine Occult Blood MOD Urine Nitrite NEG Urine Bilirubin NEG Urine Urobilinogen 4.0 Urine Leukocyte Esterase MOD Urine RBC 23 Urine WBC 12 Urine Squamous Epithelial Cells 7 Urine Mucus MANY MDM Medical Record Reviewed: Yes Narrative Course / MDM Assessment: Nonviable of undetermined location suspicious for ectopic , she is Rh+ Plan: I reviewed with the patient the opportunity to proceed to the operating room for D&C and possible laparoscopy and treatment is indicated for possible ectopic versus medical therapy with methotrexate. After a thorough review of the risks benefits and alternatives she is opted to proceed with methotrexate therapy. (50mg/meter squared) She expresses willingness to come for appropriate follow-up. She has given me a contact number of [phone]. She is aware that she should return to the emergency room immediately for any worsening of symptoms or concerns. She will return on Thursday to the emergency room for a quantitative beta-hCG and also in 1 week. Disposition: DISCHARGE HOME Condition: Stable Scripts Oxycodone-Acetaminophen (Percocet) 5-325 mg Tab 1 TAB PO Q6H Y for PAIN, #10 TAB 0 Refills Prov: Roger Cannon MD 04/03/18 Referrals: Programming Director 3 days Additional Instructions: Follow-up as an outpatient as advised by OB hospitalist Dr. Pierce for repeat labs. Return to the emergency department for worsening symptoms or any other concerns. Preston Arias MD April 03, 2018 21:28
[2018-04-03] MEDS ORDERED: METHOTREXATE SOD PF 50 MG/2 ML VIAL IM ONE (23:00)
[2018-04-03 23:16] VITALS: BP 128/74
[2018-04-06] MEDS ORDERED: PERC5TAB12 PO (09:43)
== END 2018-04-03 23:17 | disposition home or self-care (01) ==
LOC: NEPD 17:13
DX: R10.32 Left lower quadrant pain (principal); R10.31 Right lower quadrant pain; N93.9 Abnormal uterine and vaginal bleeding, unspecified; N83.202 Unspecified ovarian cyst, left side; F17.200 Nicotine dependence, unspecified, uncomplicated; F12.90 Cannabis use, unspecified, uncomplicated; Z88.6 Allergy status to analgesic agent
CPT/HCPCS: 76700; 76817; 80053; 81001; 83690; 84702; 85025; 85610; 85730; 96372; 96374; 99284; J2270; J9250

== ENCOUNTER 2018-04-06 08:26 | Emergency (ER) | payer MEDICAID ==
[2018-04-06] MEDS: oxyCODONE/ACETAMINOPHEN 5 MG/325 MG TAB PO (09:00)
[2018-04-06 09:18] LABS: BETA HCG QUANT 885 MIU/ML (0-5)
== END 2018-04-06 10:54 | disposition home or self-care (01) ==
LOC: NEPE 08:26
DX: O26.892 Other specified pregnancy related conditions, second trimester (principal); R10.30 Lower abdominal pain, unspecified; O99.332 Smoking (tobacco) complicating pregnancy, second trimester; F17.200 Nicotine dependence, unspecified, uncomplicated; Z3A.16 16 weeks gestation of pregnancy
CPT/HCPCS: 84702; 99283

== ENCOUNTER 2018-04-10 09:33 | Emergency (ER) | payer MEDICAID ==
[~2018-04-10 09:33] MED LIST changes: +PERC5TAB12 PO
[2018-04-10 09:36] VITALS: BP 152/86; PULSE 79; RESP 18; TEMP 98.4; O2SAT 100
[2018-04-10] MEDS ORDERED: diphenhydrAMINE HCL 50 MG/ML VIAL IV PUSH ONE (10:15)
[2018-04-10] MEDS ORDERED: PROCHLORPERAZINE INJ 10 MG/2 ML VIAL IV PUSH ONE (10:15)
[2018-04-10] MEDS ORDERED: MORPHINE SULFATE 4 MG/ML INJ IV PUSH ONE (10:15)
[2018-04-10] MEDS ORDERED: ACETAMINOPHEN/HYDROcodone 325 MG/5 MG TAB PO ONE (10:15)
--- NOTE | 2018-04-10 10:32 | PD ---
HPI . Pelvic pain and bleeding Chief Complaint: Related Problem Time Seen by Provider: 09:44 Travel History International Travel<30 days: No Contact w/Intl Traveler<30days: No Traveled to known affect area: No History of Present Illness HPI This patient presents for further evaluation of pelvic pain and bleeding. We have been following her here for a month for this. She initially presented to us with related problems on 03/11. At that time, she had a quantitative hCG of 171 and an ultrasound which showed no evidence of . At the time, she was 8 weeks by dates. She has subsequently been seen here for more times prior to today. Her quantitative hCG has been followed as has her ultrasound. No ultrasound has shown evidence of . Her maximum quantitative hCG was on 04/03 at 939. Her most recent quantitative hCG was on 04/06 and was 885. She was treated on 04/03 in consultation with the OB hospitalist with methotrexate. The patient states that she has had very little bleeding since that time. She reports that she expected to have a lot of bleeding compatible with the passage of retained products of conception. However, that has not occurred. She continues to have scant bleeding and significant pelvic pain. She was offered D&C on 04/03 but refused opting for more conservative treatment. Today, she may consider D&C. She would like to see what her repeat quantitative hCG is first prior to making a decision. However, she reports that she is tired of the bleeding and pain. It has been going on for months now. Her discomfort is described as cramping and is rated 8/10. There are no modifying factors. It is associated with slight vaginal bleeding. Onset 1 month. Blood type is O+. PFSH Past Medical History Anxiety: Yes (PANIC ATTACKS) Diminished Hearing: No Gestational Age in Weeks: 16 Hypertension: Yes Integumentary: Yes (PSORIASIS) Immunizations Current: Yes ?: : 4 Para: 3 Miscarriage: 0 : 0 Past Surgical History Gynecologic Surgery: Yes (CYST) Social History Alcohol Use: Yes (on occasion) Tobacco Use: Yes (10 per day) Substance Use: No Allergies-Medications (Allergen,Severity, Reaction): Coded Allergies: aspirin (Verified Allergy, Severe, DIZZY/VOMITING/STOMACH PAIN, 04/06/18) ibuprofen (Verified Adverse Reaction, Intermediate, Rash, 5/8/18) PT HAS PSORIASIS AND GETS FLARE UPS WHEN SHE TAKE IBUPROFEN Reported Meds & Prescriptions Reported Meds & Active Scripts Active Percocet (Oxycodone-Acetaminophen) 5-325 mg Tab 1 Tab PO Q6H PRN Vitamins Tablet (Pnv No.95/Ferrous Fum/Folic AC) 28 Mg Iron-800 Mcg Tablet 1 Tab PO ONCE Review of Systems Except as stated in HPI: all other systems reviewed are Neg Physical Exam Narrative GENERAL: Awake and alert and in no acute distress. SKIN: Warm and dry. HEAD: Normocephalic/atraumatic. EYES: Pupils are equal. Extraocular movements are intact. NECK: Normal range of motion. CARDIOVASCULAR: Regular rate and rhythm. RESPIRATORY: Nonlabored respirations. MUSCULOSKELETAL: Atraumatic. NEUROLOGICAL: Nonfocal. PSYCHIATRIC: Appropriate mood and affect. Data Data Last Documented VS Vital Signs Date Time Temp Pulse Resp B/P (MAP) Pulse Ox O2 Delivery O2 Flow Rate FiO2 04/10/18 09:36 98.4 79 18 152/86 (108) 100 Orders Orders Beta Hcg (Quant/Titer) (04/10/18 09:45) Acetamin-Hydrocod 325-5 Mg ([place] 5-325 (04/10/18 10:15) ^ Saline Lock (04/10/18 10:15) Morphine Inj (Morphine Inj) (04/10/18 10:15) Diphenhydramine Inj (Benadryl Inj) (04/10/18 10:15) Prochlorperazine Inj (Compazine Inj) (04/10/18 10:15) Complete Blood Count With Diff (04/10/18 10:15) Basic Metabolic Panel (Bmp) (04/10/18 10:15) Labs Laboratory Tests Test 04/10/18 09:55 04/10/18 10:35 Blood Urea Nitrogen 9 MG/DL Creatinine 0.74 MG/DL Random Glucose 101 MG/DL Calcium Level 9.0 MG/DL Sodium Level 140 MEQ/L Potassium Level 3.8 MEQ/L Chloride Level 107 MEQ/L Carbon Dioxide Level 24.6 MEQ/L Anion Gap 8 MEQ/L Estimat Glomerular Filtration Rate 110 ML/MIN Human Chorionic Gonadotropin, Quant 746 MIU/ML White Blood Count 5.6 TH/MM3 Red Blood Count 3.83 MIL/MM3 Hemoglobin 12.1 GM/DL Hematocrit 35.4 % Mean Corpuscular Volume 92.6 FL Mean Corpuscular Hemoglobin 31.6 PG Mean Corpuscular Hemoglobin Concent 34.1 % Red Cell Distribution Width 13.2 % Platelet Count 279 TH/MM3 Mean Platelet Volume 7.1 FL Neutrophils (%) (Auto) 40.5 % Lymphocytes (%) (Auto) 50.5 % Monocytes (%) (Auto) 5.1 % Eosinophils (%) (Auto) 3.0 % Basophils (%) (Auto) 0.9 % Neutrophils # (Auto) 2.2 TH/MM3 Lymphocytes # (Auto) 2.8 TH/MM3 Monocytes # (Auto) 0.3 TH/MM3 Eosinophils # (Auto) 0.2 TH/MM3 Basophils # (Auto) 0.1 TH/MM3 CBC Comment DIFF FINAL Differential Comment MDM Medical Decision Making Medical Screen Exam Complete: Yes Emergency Medical Condition: Yes Differential Diagnosis Differential diagnosis of vaginal bleeding includes but is not limited to dysfunctional uterine bleeding, normal menstrual cycle, ectopic , spontaneous AB, PID. Narrative Course This patient presents with persistent vaginal bleeding and pelvic cramping. She has a nonviable . She has been dealing with this for a month. She was treated with methotrexate 7 days ago. Quantitative hCG is pending. She would like to base her decision upon further therapy on the results of the quantitative hCG. However, D&C is a possibility for her. Therefore, she will be kept n.p.o. I have treated her pain with IV morphine, Compazine and Benadryl. We do not have IV Zofran. I have also ordered a CBC and BMP for possible preop. We know that her blood type is O+. CBC Diagram 04/10/18 10:35 BMP Diagram 04/10/18 09:55 Calcium Level 9.0 Quantitative hCG 746 The case has been discussed with the OB hospitalist. Her quantitative hCG is declining appropriately. D&C would not be indicated as she is being treated for presumed ectopic . Patient needs to be seen again in a week for another repeat quantitative hCG. Physician Communication Physician Communication Dr. Schultz Diagnosis Primary Impression: Ectopic Qualified Codes: O00.90 - Unspecified ectopic without intrauterine Patient Instructions: Ectopic (DC), General Instructions, Methotrexate (By injection) Med/Other Pt SpecificInfo: Prescription(s) given Scripts Hydrocodone-Acetaminophen ([place]) 5 Mg-325 Mg Tab 1 TAB PO Q4H Y for PAIN, #12 TAB 0 Refills Prov: Stephanie Wild MD 04/10/18 Disposition: 01 DISCHARGE HOME Condition: Stable Stephanie Wild MD April 10, 2018 10:32
[2018-04-10 10:54] LABS: BICARBONATE 24.6 MEQ/L (21.0-32.0); CREATININE 0.74 MG/DL (0.50-1.00)
[2018-04-10 11:03] LABS: AUTOMATED NEUTROPHIL # 2.2 TH/MM3 (1.8-7.7); BASOPHIL # 0.1 TH/MM3 (0-0.2); BASOPHIL % 0.9 % (0.0-2.0); EOSINOPHIL # 0.2 TH/MM3 (0-0.4); HEMATOCRIT 35.4 % (35.0-46.0); HEMOGLOBIN 12.1 GM/DL (11.6-15.3); LYMPH % 50.5 % (9.0-44.0); LYMPHOCYTE # 2.8 TH/MM3 (1.0-4.8); MEAN CELL VOLUME 92.6 FL (80.0-100.0); MEAN CORPUSCULAR HEMOGLOBIN 31.6 PG (27.0-34.0); MEAN CORPUSCULAR HGB CONC 34.1 % (32.0-36.0); MEAN PLATELET VOLUME 7.1 FL (7.0-11.0); MONO % 5.1 % (0.0-8.0); MONOCYTE # 0.3 TH/MM3 (0-0.9); NEUT % 40.5 % (16.0-70.0); PLATELET COUNT 279 TH/MM3 (150-450); RED BLOOD COUNT 3.83 MIL/MM3 (4.00-5.30); RED CELL DISTRIBUTION WIDTH 13.2 % (11.6-17.2); WHITE BLOOD COUNT 5.6 TH/MM3 (4.0-11.0)
[2018-04-10] MEDS ORDERED: NORC5TAB PO (12:14)
== END 2018-04-10 12:48 | disposition home or self-care (01) ==
LOC: NEPC 09:33
DX: O26.892 Other specified pregnancy related conditions, second trimester (principal); O16.2 Unspecified maternal hypertension, second trimester; O99.332 Smoking (tobacco) complicating pregnancy, second trimester; Z3A.16 16 weeks gestation of pregnancy; Z88.6 Allergy status to analgesic agent
CPT/HCPCS: 80048; 84702; 85025; 96374; 96375; 99284; J0780; J1200; J2270